=== PATIENT | male | born 1990 | race Caucasian/White ===

== ENCOUNTER 2016-09-30 16:19 | Emergency (ER) | payer OTHER ==
[~2016-09-30] VITALS: Ht 188 cm; Wt 107.5 kg
[2016-09-30 16:27] VITALS: TEMP 36.7; Ht 188 cm; Wt 107.5 kg
[2016-09-30 17:01] LABS: HEMATOCRIT 46.7 % (42-52); MEAN CELL VOLUME 90.5 fL (80-100); MEAN CORPUSCULAR HGB CONC 33.2 g/dl (32-36); MEAN PLATELET VOLUME 9.4 fL (7.4-10.4); PLATELET COUNT 231 K/uL (130-400); RED BLOOD COUNT 5.16 M/uL (4.7-6.1); WHITE BLOOD COUNT 9.19 K/uL (4.8-10.8)
[2016-09-30 17:20] LABS: BUN/CREATININE RATIO 13.9 (10-20); CALCIUM 9.1 mg/dl (8.5-10.1); CREATININE 0.94 mg/dl (0.60-1.40); POTASSIUM 4.1 mmol/L (3.5-5.1)
[2016-09-30 17:28] LABS: ACETAMINOPHEN < 2 ug/ml (10-30)
[2016-09-30 17:30] LABS: THYROID STIMULATING HORMONE 1.28 uIu/ml (0.300-4.500)
[2016-09-30] MEDS ORDERED: DIVA500T59 PO ×2 (17:42)
[2016-09-30] MEDS ORDERED: QUET1TAB90 PO (17:42)
[2016-09-30] MEDS ORDERED: FERR1TAB23 PO (17:42)
[2016-09-30 17:49] LABS: BENZODIAZEPINE, URINE NEG (NEG); COCAINE,URINE NEG (NEG); PHENCYCLIDINE, URINE NEG (NEG)
[2016-09-30] MEDS ORDERED: LORAZEPAM 1 MG TAB SL STA (19:20)
[2016-09-30] MEDS ORDERED: NICOTINE POLACRILEX 2 MG GUM MT STA (19:20)
--- NOTE | 2016-09-30 19:48 | EMERGENCY ROOM VISIT NOTE ---
History Report prepared by Ray: Candace Keith Under the Supervision of: Dr. Jose Antonio Wallis M.D. First contact with patient: 16:31 Chief Complaint: MENTAL HEALTH EVALUATION Stated Complaint: BLOOD WORK TO GET MENTAL HEALTH EVAL-REFERRED History of Present Illness The patient is a 26 year old male who presents to the Emergency Room for a mental health evaluation. The patient reports that he did not feel safe with himself because he has been thinking about hurting himself. The patient reports that he has tried to kill himself in the past and that he was hearing voices and was having flashbacks and hallucinations. He states that he has been diagnosed with bipolar disorder and schizophrenia and that he takes medications for this. He reports that he is also anemic. Right now he states that he feels pain rated at a 1/10. The patient also reports that he feels depressed because he found out that he went to high school with a kid who was hazed. He also states that he has been smoking cigarettes for 15 years since the age of 11. The patient states that he has been accepted to [facility] and came here for medical clearance. He is not homicidal. He states that he has no plan to kill himself and currently does not feel suicidal. Source of History: patient Onset: chronic Position: other (global) Symptom Intensity: moderate Quality: other (depression) Timing: constant Note: additional symptoms: suicidal thoughts Review of Systems See HPI for pertinent positives & negatives. A total of 10 systems reviewed and were otherwise negative. Past Medical & Surgical Medical Problems: (1) Asthma (2) Diabetes (3) Emphysema lung (4) Heart disease (5) Hypertension (6) Skin problem Family History Diabetes mellitus Heart disease Hypertension Kidney disease Lung disease Seizures Social History Smoking Status: Current Every Day Smoker Alcohol Use: none Current/Historical Medications Scheduled Divalproex Sodium (Depakote), 500 MG PO QAM Divalproex Sodium (Depakote), 750 MG PO HS Ferrous Sulfate (Iron), 1 TAB PO DAILY Quetiapine Fumarate (Seroquel), 600 MG PO HS Allergies Coded Allergies: Oxcarbazepine (Unverified Allergy, Severe, UNKNOWN, 09/30/16) Physical Exam Vital Signs Date Time Temp Pulse Resp B/P (MAP) Pulse Ox O2 Delivery O2 Flow Rate FiO2 09/30/16 18:09 102 20 145/92 98 Room Air 09/30/16 16:27 36.7 97 16 150/89 99 Room Air Physical Exam Constitutional: Vital signs reviewed. Eyes: Pupils are equal round reactive to light. Conjunctiva are noninjected. ENT: Pharynx is clear without erythema or exudate. Mucous membranes are moist. Neck supple without meningeal signs. Respiratory: Clear to auscultation bilaterally. Breath sounds are equal bilaterally. Cardiovascular: Regular rate and rhythm. No rubs or gallops. GI: Soft, nondistended and nontender. Bowel sounds are present. Musculoskeletal: No peripheral edema. No lower extremity tenderness. Integumentary: No cyanosis. Neurological: The patient is awake and alert. No focal deficits. Psychiatric: Guarded affect. Medical Decision & Procedures Laboratory Results 09/30/16 16:38 09/30/16 16:38 Test 09/30/16 16:38 09/30/16 17:00 Red Blood Count 5.16 M/uL (4.7-6.1) Mean Corpuscular Volume 90.5 fL (80-100) Mean Corpuscular Hemoglobin 30.0 pg (25-34) Mean Corpuscular Hemoglobin Concent 33.2 g/dl (32-36) RDW Standard Deviation 43.8 fL (36.4-46.3) RDW Coefficient of Variation 13.3 % (11.5-14.5) Mean Platelet Volume 9.4 fL (7.4-10.4) Anion Gap 8.0 mmol/L (3-11) Est Creatinine Clear Calc Drug Dose 158.3 ml/min Estimated GFR () 131.0 Estimated GFR (Non- 113.0 BUN/Creatinine Ratio 13.9 (10-20) Calcium Level 9.1 mg/dl (8.5-10.1) Total Bilirubin 0.3 mg/dl (0.2-1) Direct Bilirubin 0.1 mg/dl (0-0.2) Aspartate Amino Transf (AST/SGOT) 26 U/L (15-37) Alanine Aminotransferase (ALT/SGPT) 28 U/L (12-78) Alkaline Phosphatase 92 U/L (45-117) Total Protein 7.2 gm/dl (6.4-8.2) Albumin 3.7 gm/dl (3.4-5.0) Thyroid Stimulating Hormone (TSH) 1.280 uIu/ml (0.300-4.500) Salicylates Level 2.1 mg/dl (2.8-20) Acetaminophen Level < 2 ug/ml (10-30) Valproic Acid (Depakene) Level 89 mcg/ml (50-100) Ethyl Alcohol mg/dL < 3.0 mg/dl (0-3) Urine Opiates Screen NEG (NEG) Urine Methadone, Qualitative NEG (NEG) Urine Barbiturates NEG (NEG) Urine Phencyclidine (PCP) Level NEG (NEG) Ur Amphetamine/Methamphetamine NEG (NEG) MDMA (Ecstasy) Screen NEG (NEG) Urine Benzodiazepines Screen NEG (NEG) Urine Cocaine Metabolite NEG (NEG) Urine Marijuana (THC) POS (NEG) Laboratory results as reviewed by me. Medications Administered Medications (Trade) Dose Ordered Sig/Delphine Route Start Time Stop Time Status Last Admin Dose Admin Lorazepam (Ativan Tab) 1 mg NOW STAT SL 09/30/16 19:20 09/30/16 19:21 DC 09/30/16 19:28 1 MG Nicotine Polacrilex (Nicorette 2MG Gum) 1 piece NOW STAT MT 09/30/16 19:20 09/30/16 19:21 DC 09/30/16 19:27 1 PIECE ED Course 1644: The patient was evaluated in room A7. A complete history and physical exam was performed. 1740: The patient is medically cleared. I talked to the shelter case manager who said that the [facility] assessed him last night and they recommended outpatient care. 1920: The patient is anxious and requesting Nicotine gum and Ativan. Medical Decision This is a 26-year-old male who presents for mental health evaluation. I did perform a limited focused review of portions of the patient's old chart on the electronic medical record. The patient has had no recent pertinent visits to this hospital. Blood Pressure Screening: Patient was found to have an elevated blood pressure and was referred to their primary doctor for recheck and further treatment. Medication Reconciliation: I attest that I have personally reviewed the patient' s current medication list. I did evaluate the patient as noted above. I did order and review the patient' s blood work as noted in the electronic medical record. The patient is not anemic. His Depakote level is not elevated. I did medically clear the patient. The mental health shelter case manager evaluate the patient. She states that the [facility] evaluated patient yesterday and recommended outpatient treatment. The patient apparently misrepresented the fact that they had accepted him for admission. The patient does wish to be admitted for inpatient care. A referral was made to the [facility]. He was accepted by the [facility] and transferred securely. Impression Primary Impression: Depression Additional Impression: Suicidal ideation Scribe Attestation The scribe's documentation has been prepared under my direct and personally reviewed by me in its entirety. I confirm that the note above accurately reflects all work, treatment, procedures, and medical decision making performed by me. Departure Information Dispostion Mental Health Acute Care Referrals No Doctor, Assigned (PCP) Patient Instructions My [facility] Problem Qualifiers Primary Impression: Depression Depression Type: unspecified Qualified Codes: F32.9 - Major depressive disorder, single episode, unspecified
[2016-09-30 20:09] VITALS: BP 151/89; PULSE 81; O2SAT 100
== END 2016-09-30 20:39 ==
LOC: C.EDB 16:24 → C.EDA 20:39
DX: F32.9 Major depressive disorder, single episode, unspecified (principal); R45.851 Suicidal ideations; E11.9 Type 2 diabetes mellitus without complications; I10 Essential (primary) hypertension; I51.9 Heart disease, unspecified; J45.909 Unspecified asthma, uncomplicated; J43.9 Emphysema, unspecified; F17.200 Nicotine dependence, unspecified, uncomplicated; Z87.2 Personal history of diseases of the skin and subcutaneous tissue; Z88.8 Allergy status to other drugs, medicaments and biological substances; Z83.3 Family history of diabetes mellitus; Z82.49 Family history of ischemic heart disease and other diseases of the circulatory system; Z84.1 Family history of disorders of kidney and ureter; Z82.0 Family history of epilepsy and other diseases of the nervous system; Z79.899 Other long term (current) drug therapy

== ENCOUNTER 2016-10-15 00:18 | Emergency (ER) | payer OTHER ==
[~2016-10-15] VITALS: Ht 185.4 cm; Wt 91.9 kg
[~2016-10-15 00:18] MED LIST: DIVA500T59 PO; FERR1TAB23 PO; QUET1TAB90 PO
[2016-10-15] MEDS ORDERED: hydrOXYzine HCL 25 MG TAB PO STA (00:26)
[2016-10-15] MEDS ORDERED: LORAZEPAM 1 MG TAB PO STA (00:26)
[2016-10-15 00:28] VITALS: TEMP 36.7; Ht 185.4 cm; Wt 91.9 kg
[2016-10-15] MEDS ORDERED: RISP2TAB22 PO (01:12)
--- NOTE | 2016-10-15 01:13 | EMERGENCY ROOM VISIT NOTE ---
History Report prepared by Benedictiblelo: Brian Flynn Under the Supervision of: Dr. Carlos Pena D.O. First contact with patient: 00:24 Chief Complaint: ANXIETY Stated Complaint: ANXIETY, History of Present Illness The patient is a 26 year old male who presents to the Emergency Room with complaints of persistent anxiety beginning shortly prior to arrival. He has a history of anxiety, and took his prescribed medication about 8 hours ago. He states that he has not been able to sleep tonight. The patient denies any attempts at harming himself. He denies any suicidal or homicidal ideation. He denies taking increased dose of his medication or attempting to overdose. Source of History: patient Onset: Shortly prior to arrival Quality: other (anxiety) Timing: other (persistent) Review of Systems See HPI for pertinent positives and negatives. A total of ten systems were reviewed and were otherwise negative. Past Medical & Surgical Medical Problems: (1) Asthma (2) Diabetes (3) Emphysema lung (4) Heart disease (5) Hypertension (6) Skin problem Family History Diabetes mellitus Heart disease Hypertension Kidney disease Lung disease Seizures Social History Smoking Status: Current Every Day Smoker Alcohol Use: none Current/Historical Medications Scheduled Divalproex Sodium (Depakote), 500 MG PO QAM Divalproex Sodium (Depakote), 750 MG PO HS Ferrous Sulfate (Iron), 1 TAB PO DAILY Quetiapine Fumarate (Seroquel), 600 MG PO HS Risperidone (Risperdal), 2 MG PO HS Allergies Coded Allergies: Oxcarbazepine (Unverified Allergy, Severe, UNKNOWN, 09/30/16) Physical Exam Vital Signs Date Time Temp Pulse Resp B/P (MAP) Pulse Ox O2 Delivery O2 Flow Rate FiO2 10/15/16 00:28 36.7 114 20 145/110 96 Room Air Physical Exam PSYCH: Anxious. Denies suicidal or homicidal ideation. GENERAL: Awake, alert, well-appearing, in no distress HENT: Normocephalic, atraumatic. Oropharynx unremarkable. EYES: Normal conjunctiva. Sclera non-icteric. NECK: Supple. No nuchal rigidity. FROM. No JVD. RESPIRATORY: Clear to auscultation. CARDIAC: Tachycardic rate, normal rhythm. Extremities warm and well perfused. Pulses equal. ABDOMEN: Soft, non-distended. No tenderness to palpation. No rebound or guarding. No masses. RECTAL: Deferred. MUSCULOSKELETAL: Chest examination reveals no tenderness. The back is symmetrical on inspection without obvious abnormality. There is no CVA tenderness to palpation. No joint edema. LOWER EXTREMITIES: Calves are equal size bilaterally and non-tender. No edema. No discoloration. NEURO: Normal sensorium. No sensory or motor deficits noted. SKIN: No rash or jaundice noted. Medical Decision & Procedures Medications Administered Medications (Trade) Dose Ordered Sig/Delphine Route Start Time Stop Time Status Last Admin Dose Admin Hydroxyzine HCl (Vistaril Tab) 25 mg NOW STAT PO 10/15/16 00:26 10/15/16 00:28 DC 10/15/16 00:36 25 MG Lorazepam (Ativan Tab) 1 mg NOW STAT PO 10/15/16 00:26 10/15/16 00:28 DC 10/15/16 00:36 1 MG ED Course 0025: The patient was evaluated in room A6. A complete history and physical exam was performed. 0026: Ordered Ativan tab 1 mg PO, Vistaril Tab 25 mg PO. 0105: I reevaluated the patient. Discussed results and discharge instructions: he verbalized understanding and agreement. The patient is ready for discharge. Medical Decision Differential diagnoses include but are not limited to; anxiety, depression, and panic attack. Much improved on repeat examination at 1:10 AM, not suicidal and not homicidal states anxiety has decreased Impression Primary Impression: Acute anxiety Scribe Attestation The scribe's documentation has been prepared under my direction and personally reviewed by me in its entirety. I confirm that the note above accurately reflects all work, treatment, procedures, and medical decision making performed by me. Departure Information Dispostion Home / Self-Care Referrals No Doctor, Assigned (PCP) Patient Instructions Anxiety Disorder, My [facility]
[2016-10-15 01:30] VITALS: BP 127/69; PULSE 97; O2SAT 96
== END 2016-10-15 01:56 | disposition home or self-care (01) ==
LOC: EDBD 00:18 → C.EDA 00:19
DX: F41.9 Anxiety disorder, unspecified (principal); J45.909 Unspecified asthma, uncomplicated; E11.9 Type 2 diabetes mellitus without complications; I10 Essential (primary) hypertension; J43.9 Emphysema, unspecified; F17.200 Nicotine dependence, unspecified, uncomplicated; Z83.3 Family history of diabetes mellitus; Z82.49 Family history of ischemic heart disease and other diseases of the circulatory system; Z82.0 Family history of epilepsy and other diseases of the nervous system

== ENCOUNTER 2024-07-04 15:41 | Inpatient (IN) ==
--- NOTE | 2024-07-04 16:01 | Emergency Department Note ---
Impression & Plan STEMI (ST elevation myocardial infarction) Admission ED Provider Note HPI: History obtained from patient. The patient is a 33-year-old gentleman who was brought back to room A1 over concern for chest pain with an EKG that was suggestive of ST elevation myocardial infarction. 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 Patient denies any past medical history however upon chart review hypertension, diabetes, heart disease, and asthma are listed. On arrival here to the ED the patient is hypertensive at 174/116, he is otherwise hemodynamically stable and saturating well on room air. Heart alert was activated from the ED after EKG review by myself. ROS: - Per HPI Differential Diagnosis: ST elevation myocardial infarction, esophagitis, acid reflux, PE, aortic dissection, pericarditis, myocarditis, pleuritis, costochondritis, amongst other potential pathologies. *Outpatient medications and allergy history reviewed. 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: (As interpreted by myself): - An order was placed for continuous cardiac monitoring - Patient was noted to be in sinus rhythm with a rate of 72 EKG: (As interpreted by myself): Rate: 57 Rhythm: Sinus bradycardia Intervals: Within normal limits ST changes: ST elevation in leads II, 3, aVF with reciprocal ST depressions in leads aVL, V1, and V2 consistent with ST elevation myocardial infarction Time: 1551 Chest x-ray: (As interpreted by myself): No acute disease Interventions provided in ED: - Aspirin Medical Decision Making: Shortly after review of the patient's EKG, heart alert was activated. Patient's EKG is consistent with what appears to be an inferior wall ST elevation myocardial infarction. Patient was evaluated at the bedside by interventional cardiology and taken to the cardiac catheterization lab for further management. Patient remained otherwise hemodynamically stable while here in the ED and was ordered aspirin. Chest x-ray did not show any evidence of acute disease. Patient was transferred to the cardiac catheterization lab in stable condition for further management and investigation. Consultants/Discussions held with other healthcare providers: - Interventional cardiology, Dr. Jeffries - Hospitalist, Dr. Eric Disposition discussion held by myself with: - Patient * CRITICAL CARE TIME: (33) minutes - Management of patient with ST elevation myocardial infarction requiring activation of heart alert and transferred to the cardiac catheterization lab emergently for definitive care, interpretation of diagnostic studies including EKG, discussion with other physicians/arrangement of admission. Diagnosis: 1. Inferior wall ST elevation myocardial infarction, acute 2. Chest pain, acute Disposition: Admission Elfego Malik DO Emergency Medicine Past Med/Surg History Problem List (Updated 07/04/24 @ 21:17 by Elfego Malik DO) Benign essential hypertension Hyperlipidemia Schizoaffective disorder, bipolar type STEMI (ST elevation myocardial infarction) (Acute) Family History Father Bipolar disorder Brother Bipolar disorder Grandfather (Maternal) Cerebral aneurysm Grandmother (Maternal) Diabetes Social History Smoking Status: Former smoker Tobacco Type: E-cigarettes / Vaping Cigarettes Per Day: vaping to stop smoking; Hx Alcohol Use: No Hx Substance Use: No Preferred Language: Indian Communication Ability: Effective Pathologist Required: No Beliefs That Will Affect Care: None Current Living Situation: Alone current occupational status: employed Feels Safe at Home: Yes Safety Concerns: Feels Safe At This Time Gender Identity: Male Assistive Devices: None Allergies Allergies Allergy/AdvReac Type Severity Reaction Status Date / Time oxcarbazepine Allergy Severe UNKNOWN Verified 07/04/24 15:58 Home Meds Home Medications Medication Instructions Recorded Confirmed divalproex 500 mg tablet,extended 500 mg PO HS 04/27/22 07/04/24 release 24 hr Results & Data (ED) Vital Signs Vital Signs - 24 hr 07/04/24 15:42 07/04/24 15:56 07/04/24 15:56 Temperature 36.1 C L Temperature Source Temporal Artery Scan Pulse Rate 64 Pulse Rate [Apical] Pulse Rate from SpO2 Sensor Pulse Rhythm [Apical] Pulse Strength [Apical] Respiratory Rate 19 Respiratory Effort / Characteristics Non-Labored Spontaneous Respiratory Depth Normal Respiratory Pattern Blood Pressure 177/107 H 174/116 H 174/116 H Blood Pressure [Right Arm] Blood Pressure Mean 130 126 126 Blood Pressure Mean [Right Arm] Blood Pressure Position [Right Arm] Pulse Oximetry 98 Oxygen Delivery Method Room Air Sepsis Recent Fever Within 48 Hours No Sepsis New/Unexplained Change in Mental Status N/A Sepsis Action Taken by Nursing No Action Required 07/04/24 15:58 07/04/24 16:00 07/04/24 16:00 Temperature Temperature Source Pulse Rate Pulse Rate [Apical] 60 Pulse Rate from SpO2 Sensor 66 Pulse Rhythm [Apical] Pulse Strength [Apical] Respiratory Rate 14 Respiratory Effort / Characteristics Respiratory Depth Respiratory Pattern Blood Pressure Blood Pressure [Right Arm] 174/116 H Blood Pressure Mean Blood Pressure Mean [Right Arm] 135 Blood Pressure Position [Right Arm] Pulse Oximetry 99 99 100 Oxygen Delivery Method Room Air Room Air Sepsis Recent Fever Within 48 Hours Sepsis New/Unexplained Change in Mental Status Sepsis Action Taken by Nursing 07/04/24 16:04 07/04/24 16:04 07/04/24 16:04 Temperature Temperature Source Pulse Rate Pulse Rate [Apical] Pulse Rate from SpO2 Sensor Pulse Rhythm [Apical] Pulse Strength [Apical] Respiratory Rate Respiratory Effort / Characteristics Respiratory Depth Respiratory Pattern Blood Pressure 163/105 H 163/105 H 163/105 H Blood Pressure [Right Arm] Blood Pressure Mean 134 134 134 Blood Pressure Mean [Right Arm] Blood Pressure Position [Right Arm] Pulse Oximetry Oxygen Delivery Method Sepsis Recent Fever Within 48 Hours Sepsis New/Unexplained Change in Mental Status Sepsis Action Taken by Nursing 07/04/24 16:04 07/04/24 16:07 07/04/24 16:17 Temperature Temperature Source Pulse Rate Pulse Rate [Apical] 94 H Pulse Rate from SpO2 Sensor Pulse Rhythm [Apical] Regular Pulse Strength [Apical] Normal Respiratory Rate 18 Respiratory Effort / Characteristics Non-Labored Respiratory Depth Normal Respiratory Pattern Regular Blood Pressure 163/105 H Blood Pressure [Right Arm] 107/60 Blood Pressure Mean 134 Blood Pressure Mean [Right Arm] 75 Blood Pressure Position [Right Arm] Sitting Pulse Oximetry 97 Oxygen Delivery Method Room Air Room Air Sepsis Recent Fever Within 48 Hours Sepsis New/Unexplained Change in Mental Status Sepsis Action Taken by Nursing Laboratory Data 07/04/24 15:58 07/04/24 15:58 Lab Results 07/04/24 07/04/24 07/04/24 Range/Units 15:58 16:33 16:47 WBC 13.61 H (4.8-10.8) K/ul RBC 5.69 (4.70-6.10) M/uL Hgb 16.7 (14.0-18.0) g/dl Hct 48.7 (42.0-52.0) % MCV 85.6 (80.0-100.0) fL MCH 29.3 (25.0-34.0) pg MCHC 34.3 (32.0-36.0) g/dL RDW Std Deviation 39.4 (36.4-46.3) fL RDW Coeff of Love 12.6 (11.5-14.5) % Plt Count 343 (130-400) K/uL MPV 9.2 L (9.4-12.4) fL Immature Gran % (Auto) 0.7 % Neut % (Auto) 70.6 % Lymph % (Auto) 21.3 % Stanton % (Auto) 6.0 % Eos % (Auto) 1.1 % Baso % (Auto) 0.3 % Neut # (Auto) 9.61 H (1.40-6.50) K/uL Lymph # (Auto) 2.90 (1.20-3.40) K/uL Stanton # (Auto) 0.82 H (0.11-0.59) K/uL Eos # (Auto) 0.15 (0.00-0.50) K/uL Baso # (Auto) 0.04 (0.00-0.20) K/uL Immature Gran # (Auto) 0.09 (0.01-0.20) K/uL PT 10.1 (9.0-12.0) Seconds INR 0.9 (0.9-1.1) APTT 25 (21-31) Seconds PTT Ratio 0.9 Activ Coag Time Kaolin 187 H 170 H (94-140) SECONDS Sodium 140 (136-145) mmol/L Potassium 4.1 (3.5-5.1) mmol/L Chloride 102 (98-107) mmol/L Carbon Dioxide 30 (21-32) mmol/L Anion Gap 8 (3-11) BUN 10 (6-23) mg/dl Creatinine 0.98 (0.6-1.4) mg/dl Est Cr Clr Drug Dosing 149.3 ml/min eGFR 105.73 BUN/Creatinine Ratio 10.2 (10-20) Glucose 105 H (70-99(Fasting)) mg/dl Estimat Average Glucose 111 mg/dl Hemoglobin A1c 5.5 (4.5-5.6) % Calcium 9.9 (8.6-10.3) mg/dl Total Bilirubin 0.6 (0.2-1.0) mg/dl AST 52 H (13-39) U/L ALT 72 H (7-52) U/L Alkaline Phosphatase 83 (34-104) U/L Troponin I High Sens 26.1 H (0-20) pg/ml Total Protein 7.9 (6.0-8.3) gm/dl Albumin 4.6 (3.4-5.0) gm/dl Globulin 3.3 (2.5-4.0) gm/dl Albumin/Globulin Ratio 1.4 (0.9-2) Administered Medications Divalproex Sodium (Divalproex Extended Release 500 Mg Tab) 500 mg PO HS KATERIN Stop: 08/03/24 20:59 Last Admin: 07/04/24 20:50 Dose: 500 mg Documented By: ESG Metoprolol Tartrate (Metoprolol Tartrate 25 Mg Tab) 25 mg PO BID KATERIN Stop: 08/03/24 20:59 Last Admin: 07/04/24 20:50 Dose: 25 mg Documented By: ESG Miscellaneous (Icu Protocol For Hyperglycemia) 1 each N/A ACHS KATERIN Stop: 07/06/24 20:59 Last Admin: 07/04/24 20:55 Dose: Not Given Documented By: ESG Discontinued Medications Amiodarone HCl (Amiodarone Hcl Inj 50 Mg/Ml 3 Ml Vial (Ethologist Use Only)) Confirm Administered Dose 150 mg IV .STK-MED ONE Stop: 07/04/24 16:28 Last Admin: 07/04/24 16:44 Dose: 150 mg Documented By: ALLEGRA Aspirin (Aspirin 81 Mg Chew) Confirm Administered Dose 81 mg .ROUTE .STK-MED ONE Stop: 07/04/24 16:03 Last Admin: 07/04/24 16:07 Dose: Not Given Documented By: AVM Aspirin (Aspirin Chew 324 Mg) 324 mg PO NOW STA Stop: 07/04/24 16:06 Last Admin: 07/04/24 16:07 Dose: 324 mg Documented By: OSIRIS Atropine Sulfate (Atropine Sulfate 0.1 Mg/Ml 10ml Syr) Confirm Administered Dose 1 mg IV .STK-MED ONE Stop: 07/04/24 16:23 Last Admin: 07/04/24 16:43 Dose: Not Given Documented By: BPY Epinephrine HCl (Epinephrine 1.5" Ndl 0.1 Mg/Ml Syr) Confirm Administered Dose 1 mg IV .STK-MED ONE Stop: 07/04/24 16:23 Last Admin: 07/04/24 16:44 Dose: Not Given Documented By: BPY Fentanyl Citrate (Fentanyl Citrate Pf 100 Mcg/2 Ml Vial) Confirm Administered Dose 100 mcg .ROUTE .STK-MED ONE Stop: 07/04/24 16:12 Last Increment: 07/04/24 16:45 Dose: 25 mcg Documented By: BPGina Heparin Sodium (Porcine) (Heparin (Porcine) 1000 Unit/Ml 10 Ml (Ethologist Use Only)) Confirm Administered Dose 10,000 units .ROUTE .STK-MED ONE Stop: 07/04/24 16:12 Last Admin: 07/04/24 16:47 Dose: 9,500 units Documented By: BPY Heparin Sodium (Porcine) (Heparin (Porcine) 1000 Unit/Ml 10 Ml (Ethologist Use Only)) Confirm Administered Dose 10,000 units .ROUTE .STK-MED ONE Stop: 07/04/24 16:51 Last Admin: 07/04/24 17:28 Dose: Not Given Documented By: ESG(2) Heparin Sodium/Sodium Chloride (Heparin In Nss Infusion 1000 Unit/500 Ml (2 U/Ml) Bag) Confirm Administered Dose 3,000 units IV .STK-MED ONE Stop: 07/04/24 16:12 Last Admin: 07/04/24 16:42 Dose: 3,000 units Documented By: BPY Ioversol (Optiray 350) Confirm Administered Dose 1 ml .ROUTE .STK-MED ONE Stop: 07/04/24 16:13 Last Admin: 07/04/24 17:28 Dose: Not Given Documented By: ESG(2) Midazolam HCl (Midazolam Hcl 1 Mg/Ml 2ml Vial) Confirm Administered Dose 2 mg .ROUTE .STK-MED ONE Stop: 07/04/24 16:12 Last Increment: 07/04/24 16:47 Dose: 1 mg Documented By: ALLEGRA Nicardipine HCl (Nicardipine 2,000 Mcg/20 Ml Syr) Confirm Administered Dose 2,000 mcg .ROUTE .STK-MED ONE Stop: 07/04/24 16:13 Last Admin: 07/04/24 16:42 Dose: 2,000 mcg Documented By: JEMIMA Nitroglycerin/Dextrose (Nitroglycerin/D5w 100mcg/Ml 20ml Syr) Confirm Administered Dose 2,000 mcg .ROUTE .STK-MED ONE Stop: 07/04/24 16:13 Last Admin: 07/04/24 16:43 Dose: 2,000 mcg Documented By: JEMIMA Ondansetron HCl (Ondansetron Inj 2 Mg/Ml 2 Ml Vial) Confirm Administered Dose 4 mg .ROUTE .STK-MED ONE Stop: 07/04/24 16:23 Last Admin: 07/04/24 16:44 Dose: Not Given Documented By: ALLEGRA Ticagrelor (Ticagrelor 90 Mg Tab) Confirm Administered Dose 180 mg .ROUTE .STK- MED ONE Stop: 07/04/24 16:05 Last Admin: 07/04/24 16:07 Dose: 180 mg Documented By: OSIRIS Imaging Data Radiologist's Impression: Chest X-Ray 07/04/24 15:46 Chest radiograph, one view History: Chest pain Comparison: 2022 Findings: Single AP view of the chest performed. No focal consolidation or pleural effusion. No pneumothorax. The cardiomediastinal silhouette is within normal limits. Normal pulmonary vascularity. No evidence for lymphadenopathy. No visualized bony or soft tissue abnormality. Impression: Normal chest radiograph Electronically signed by Bridger Juárez 07-04-2024 4:20 PM Discharge Plan Visit Data Chief Complaint: Chest Pain Stated Complaint: CHEST PAINS ED Provider: Elfego Malik Discharge Problem: STEMI (ST elevation myocardial infarction) Discharge Instructions Interventions: ED Discharge Assessment Last Done: 07/04/24 16:07
[2024-07-04] MEDS: ASPIRIN CHEW 324 MG PO STA (16:07)
[2024-07-04] MEDS: ASPIRIN 81 MG CHEW ONE (16:07)
[2024-07-04] MEDS: TICAGRELOR 90 MG TAB ONE (16:07)
--- NOTE | 2024-07-04 16:12 | Pre Anesthesia Assessment ---
Date of Service July 04, 2024 Pre Sedation Assessment Vital Signs Temp Pulse Pulse Resp BP BP Pulse Ox 07/04/24 16:00 99 07/04/24 15:58 60 14 174/116 H 99 07/04/24 15:42 36.1 C L 64 19 177/107 H 98 O2 Del Method 07/04/24 16:00 Room Air 07/04/24 15:58 Room Air 07/04/24 15:42 Room Air Cardiovascular RRR, no murmur, no edema Respiratory normal respiratory effort, lungs clear to auscultation Pre-Sedation Airway Assessment Smoking Status: Current every day smoker Mallampati 3 ASA 4 Notes The planned sedation has been discussed with the patient. Informed Consent was obtained. I have identified the patient, determined the appropriateness of sedation and have assessed the patient immediately prior to the procedure. All medicine(s) and interventions are by my order. [facility] [place] Procedure Codes (Charges) Indication for Procedure Indication for procedure: STEMI
--- NOTE | 2024-07-04 16:20 | XRay Report ---
Chest radiograph, one view History: Chest pain Comparison: 2022 Findings: Single AP view of the chest performed. No focal consolidation or pleural effusion. No pneumothorax. The cardiomediastinal silhouette is within normal limits. Normal pulmonary vascularity. No evidence for lymphadenopathy. No visualized bony or soft tissue abnormality. Impression: Normal chest radiograph Electronically signed by Bridger Juárez 07-04-2024 4:20 PM
--- NOTE | 2024-07-04 16:24 | History & Physical Report ---
Date of Service July 04, 2024 Assessment & Plan (1) STEMI (ST elevation myocardial infarction): (2) Hyperlipidemia: (3) Schizoaffective disorder, bipolar type: Plan 33 year old male with PMH of hyperlipidemia and bipolar disorder who presented to the ED today with chest pain and was found to have a STEMI. STEMI s/p stent x2 in RCA Consult Heel Scourer and Cardiology: appreciate recs Post cardiac cath care per Interventional Cardiology Echo pending Started on aspirin and Brilinta, metoprolol, and atorvastatin HLD Per record review: Chol 237, LDL 150, HDL 39, Tri 292 Statin as above Schizoaffective disorder, bipolar type Continue depakote per home dosing DVT Prophylaxis: SCDs Code Status: FULL CODE - As per discussion at bedside with the patient. PCP: Dr Demetrius Hobbs Disposition: admit to ICU Patient seen in collaboration with Dr Eric. Please see addendum. I spent a total of 75 minutes coordinating, documenting and providing care for this patient excluding time spent in the performance of separately billed services or time spent by another provider/QHP. Admission and Anticipated Discharge Date Admission Date: 07/04/2024 History of Present Illness Chief Complaint: chest pain Primary Care Provider: Demetrius Hobbs MD 33 year old male with PMH of hyperlipidemia and bipolar disorder who presented to the ED today with chest pain. He reports that he was taking out the trash at work when he developed severe left sided chest pain with associated anxiety and diaphoresis. He came to the ED two hours later where his EKG revealed STEMI in the inferior leads. A heart alert was activated in the ED. Patient seen in the ICU after cardiac cath. He reports his chest pain is much improved. Denies fevers, chills, chest pain, SOB, abdominal pain, N/V, numbness/tingling. Allergies Allergy/AdvReac Type Severity Reaction Status Date / Time oxcarbazepine Allergy Severe UNKNOWN Verified 07/04/24 15:58 Home Medications Medication Instructions Recorded Confirmed Type divalproex 500 mg tablet,extended 500 mg PO HS 04/27/22 07/04/24 History release 24 hr Past Med/Surg History Problem List (Updated 07/04/24 @ 17:50 by Carlos Jeffries MD, PhD) Benign essential hypertension Hyperlipidemia Schizoaffective disorder, bipolar type STEMI (ST elevation myocardial infarction) Family History Father Bipolar disorder Brother Bipolar disorder Grandfather (Maternal) Cerebral aneurysm Grandmother (Maternal) Diabetes Social History Smoking Status: Former smoker Tobacco Type: E-cigarettes / Vaping Cigarettes Per Day: vaping to stop smoking; Hx Alcohol Use: No Hx Substance Use: No Preferred Language: Chilean Communication Ability: Effective Leather Goods Maker Required: No Beliefs That Will Affect Care: None Current Living Situation: Alone current occupational status: employed Feels Safe at Home: Yes Safety Concerns: Feels Safe At This Time Gender Identity: Male Assistive Devices: None Review of Systems Review of Systems: All systems reviewed & are unremarkable except as noted in HPI & below Physical Exam Physical Exam: General/Psych: WD/WN, sitting up in bed, NAD, conversing easily, euthymic affect Head: normocephalic, atraumatic Eyes: normal inspection, PERRL, conjunctivae pink, anicteric sclerae ENT: external ear and nose normal, oropharynx normal Neck: normal visual inspection, trachea midline, no thyromegaly Respiratory: normal respiratory effort, lungs clear to auscultation, no wheeze/rales/rhonchi, no accessory muscle use Cardiovascular: regular rate and rhythm, no murmur/rub/gallop, no JVD Extremities: no cyanosis or clubbing, normal peripheral pulses, no BLE edema, radial band in place on right wrist Abdomen/GI: normal bowel sounds, soft, nontender, no hepatosplenomegaly Neurologic/MSK: A+Ox3, motor strength 5/5, moves all extremities Skin: no rashes, normal color, warm and dry Results & Data Results & Data Vital Signs (Past 12 Hours) Vital Signs Temp Pulse Pulse Resp BP BP Pulse Ox 07/04/24 16:04 163/105 H 07/04/24 16:04 163/105 H 07/04/24 16:04 163/105 H 07/04/24 16:04 163/105 H 07/04/24 16:00 100 07/04/24 16:00 99 07/04/24 15:58 60 14 174/116 H 99 07/04/24 15:56 174/116 H 07/04/24 15:56 174/116 H 07/04/24 15:42 36.1 C L 64 19 177/107 H 98 O2 Del Method 07/04/24 16:04 07/04/24 16:04 07/04/24 16:04 07/04/24 16:04 07/04/24 16:00 07/04/24 16:00 Room Air 07/04/24 15:58 Room Air 07/04/24 15:56 07/04/24 15:56 07/04/24 15:42 Room Air Laboratory Results Short CBC 07/04/24 Range/Units 15:58 WBC 13.61 H (4.8-10.8) K/ul Hgb 16.7 (14.0-18.0) g/dl Hct 48.7 (42.0-52.0) % Plt Count 343 (130-400) K/uL BMP 07/04/24 15:58 Sodium 140 Potassium 4.1 Chloride 102 Carbon Dioxide 30 BUN 10 Creatinine 0.98 Glucose 105 H Calcium 9.9 Liver Function 07/04/24 Range/Units 15:58 Total Bilirubin 0.6 (0.2-1.0) mg/dl AST 52 H (13-39) U/L ALT 72 H (7-52) U/L Alkaline Phosphatase 83 (34-104) U/L Albumin 4.6 (3.4-5.0) gm/dl I have independently reviewed and interpreted patient's admitting labs including CBC, CMP, PTT, PT/INR, and troponin. Diagnostic Findings Chest X-Ray 07/04/24 15:46 Chest radiograph, one view History: Chest pain Comparison: 2022 Findings: Single AP view of the chest performed. No focal consolidation or pleural effusion. No pneumothorax. The cardiomediastinal silhouette is within normal limits. Normal pulmonary vascularity. No evidence for lymphadenopathy. No visualized bony or soft tissue abnormality. Impression: Normal chest radiograph Electronically signed by Bridger Juárez 07-04-2024 4:20 PM Medications Administered Current Inpatient Medications Aspirin (Aspirin 81 Mg Ectab) 81 mg PO QAM KATERIN Stop: 08/04/24 08:59 Atorvastatin Calcium (Atorvastatin 40 Mg Tab) 40 mg PO QAM KATERIN Stop: 08/04/24 08:59 Atropine Sulfate (Atropine Sulfate 0.1 Mg/Ml 10ml Syr) 0.5 mg IV ONCE PRN PRN Reason: bradycardia/hypotension Stop: 08/03/24 16:46 Metoprolol Tartrate (Metoprolol Tartrate 25 Mg Tab) 25 mg PO BID [facility] Stop: 08/03/24 20:59 Ondansetron HCl (Ondansetron Inj 2 Mg/Ml 2 Ml Vial) 4 mg IV Q6H PRN PRN Reason: Nausea And Vomiting Stop: 08/03/24 16:46 Ticagrelor (Ticagrelor 90 Mg Tab) 90 mg PO BID [facility] Stop: 08/04/24 08:59 ECG Additional Comments: I have independently reviewed and interpreted patient's admitting EKG which revealed: 57bpm with ST elevations in II, III, avF and ST depressions in V1 and V2 Code Status & VTE Plan Code Status Full Code Supervising Physician Co-Signing Physician Notes Patient seen and examined independently. Discussed with above provider. Patient presented to the hospital with a STEMI; underwent PCI of RCA. He reports that the pain has resolved after cardiac cath. Plan to obtain echocardiogram, observe overnight in the ICU. Continue on DAPT, losartan and metoprolol. Discussed lifestyle measures. I have reviewed the advanced practitioner's documentation, and I agree with, and take responsibility for the plan of care I spent a total of 30 minutes coordinating, documenting, and providing care for this patient excluding time spent in the performance of separately billed services. All of the aforementioned completed while collaborating with the assigned advanced practitioner for a full treatment plan
[2024-07-04 16:33] LABS: Basophils # (auto) 0.04 K/uL (0.00-0.20); Basophils % (auto) 0.3 %; Eosinophils # (auto) 0.15 K/uL (0.00-0.50); Eosinophils % (auto) 1.1 %; Hematocrit (blood only) 48.7 % (42.0-52.0); Hemoglobin 16.7 g/dl (14.0-18.0); Immature Granulocytes # (auto) 0.09 K/uL (0.01-0.20); Immature Granulocytes % (auto) 0.7 %; Lymphocytes % (auto) 21.3 %; Mean Corpuscular Hemoglobin 29.3 pg (25.0-34.0); Mean Corpuscular Hgb Conc 34.3 g/dL (32.0-36.0); Mean Corpuscular Volume 85.6 fL (80.0-100.0); Mean Platelet Volume 9.2 fL (9.4-12.4); Monocytes # (auto) 0.82 K/uL (0.11-0.59); Neutrophils # (auto) 9.61 K/uL (1.40-6.50); Neutrophils % (auto) 70.6 %; Platelet Count 343 K/uL (130-400); RDW Coefficient of Variation 12.6 % (11.5-14.5); RDW Standard Deviation 39.4 fL (36.4-46.3); Red Blood Count 5.69 M/uL (4.70-6.10); White Blood Count 13.61 K/ul (4.8-10.8)
[2024-07-04 16:40] LABS: INR 0.9 (0.9-1.1); Partial Thromboplastin Ratio 0.9; Partial Thromboplastin Time 25 Seconds (21-31); Prothrombin Time 10.1 Seconds (9.0-12.0)
[2024-07-04] MEDS: niCARdipine 2,000 MCG/20 ML SYR ONE (16:42)
[2024-07-04] MEDS: NITROGLYCERIN/D5W 100MCG/ML 20ML SYR ONE (16:43)
[2024-07-04] MEDS: ATROPINE SULFATE 0.1 MG/ML 10ML SYR IV ONE (16:43)
[2024-07-04] MEDS: AMIODARONE HCL INJ 50 MG/ML 3 ML VIAL (CATH LAB USE ONLY) IV ONE (16:44)
[2024-07-04] MEDS: ONDANSETRON INJ 2 MG/ML 2 ML VIAL ONE (16:44)
[2024-07-04] MEDS: fentaNYL citrate PF 100 MCG/2 ML VIAL ONE (16:45)
--- NOTE | 2024-07-04 16:46 | Post Anesthesia Assessment ---
Date of Service July 04, 2024 Post Sedation Assessment Vital Signs Temp Pulse Pulse Resp BP BP Pulse Ox 07/04/24 16:17 94 H 18 107/60 97 07/04/24 16:07 07/04/24 16:04 163/105 H 07/04/24 16:04 163/105 H 07/04/24 16:04 163/105 H 07/04/24 16:04 163/105 H 07/04/24 16:00 100 07/04/24 16:00 99 07/04/24 15:58 60 14 174/116 H 99 07/04/24 15:56 174/116 H 07/04/24 15:56 174/116 H 07/04/24 15:42 36.1 C L 64 19 177/107 H 98 O2 Del Method 07/04/24 16:17 Room Air 07/04/24 16:07 Room Air 07/04/24 16:04 07/04/24 16:04 07/04/24 16:04 07/04/24 16:04 07/04/24 16:00 07/04/24 16:00 Room Air 07/04/24 15:58 Room Air 07/04/24 15:56 07/04/24 15:56 07/04/24 15:42 Room Air Recovery Score Activity: Moves 4 extremities Respiration: Deep Breath/Cough Circulation: +/-20% PreAnes Value Consciousness: Fully Awake Oxygen Saturation: > 92% On Room Air Discharge Sedation Level of Care: Fast Track Phase II Post Sedation Plan On clinical assessment, the patient appears to have tolerated the sedation without complications. Patient is recovering as anticipated. Patient will continue to be monitored by nursing and may be discharged when sedation discharge criteria are met per below protocol. Upon Completions of procedure up to 15 minutes continue every 5 minute vital signs and the P.A.R. score; then discharge to a Phase I or Fast Track to Phase II per the following guidelines: * Discharge Patient to appropriate Phase II area if PAR is 8 or greater or re turn to pre- procedure baseline. The post - procedure orders will be as directed. * If PAR score is less than 8 or not return to pre-procedure baseline then patient will follow Phase I monitoring till PAR is reached for Phase II. The Phase I may be done in procedure room or may call to secure a Phase I area. * If naloxone or flumazenil are used for reversal, hold in Phase I for continued monitoring from when last reversal dose was given for a minimum of 60 minutes or longer pending the nurse and/or physician discretion of patient condition before discharge to Phase II. Please call the Sedation Physician to re-evaluate and complete post-note for discharge to Phase II area. Do NOT discharge from procedure sedation or Phase 1 until post- sedation evaluation note is complete by procedure /sedation MD Sedation Discharge Instructions to be given to the patient at discharge to home. [facility] [place] Codes (Charges) Indication for Procedure Indication for procedure: STEMI
[2024-07-04] MEDS: MIDAZOLAM HCL 1 MG/ML 2ML VIAL ONE (16:47)
[2024-07-04] MEDS ORDERED: ATROPINE SULFATE 0.1 MG/ML 10ML SYR IV PRN (16:47)
[2024-07-04] MEDS: HEPARIN (PORCINE) 1000 UNIT/ML 10 ML (CATH LAB USE ONLY) ONE ×2 (16:47→17:28)
[2024-07-04] MEDS ORDERED: ONDANSETRON INJ 2 MG/ML 2 ML VIAL IV PRN (16:47)
[2024-07-04 17:05] LABS: Troponin I High Sensitivity 26.1 pg/ml (0-20)
[2024-07-04 17:18] LABS: Albumin Level 4.6 gm/dl (3.4-5.0); Bilirubin,Total 0.6 mg/dl (0.2-1.0); Calcium 9.9 mg/dl (8.6-10.3); Potassium 4.1 mmol/L (3.5-5.1)
[2024-07-04 17:24] LABS: Albumin Globulin Ratio 1.4 (0.9-2); BUN Creatinine Ratio 10.2 (10-20); Creatinine Clr Calc Pharmacy 149.3 ml/min; Globulin 3.3 gm/dl (2.5-4.0); Total Protein 7.9 gm/dl (6.0-8.3)
[2024-07-04] MEDS: OPTIRAY 350 ONE (17:28)
--- NOTE | 2024-07-04 17:39 | Cardiac Catheterization ---
ACC Data: External Grinder Tool Cardiac Status Clinical evaluation leading to the procedure CAD Presenation: STEMI Anginal Classification: CCS IV Heart Failure: No Cardiogenic Shock within 24 Hours: No Cardiac Arrest within 24 Hours: No Imaging Studies Past 6 Months: No Stress Studies Past 6 Months: No STEMI OR Non-STEMI Symptom Onset Date: 07/04/24 Symptom Onset Time: 12:00 Thrombolytics: No Coronary Anatomy Dominant: Right Left Main (% Stenosis): Normal LAD (% Stenosis): Mid (40%) D1 (% Stenosis): Ostial (50 to 70%) D2 (% Stenosis): Normal (99% in first major branch) D3 (% Stenosis): Normal Circumflex (% Stenosis): Normal OM1 (% Stenosis): Normal L PL1 (% Stenosis): Normal RCA (% Stenosis): Proximal (100%) R PDA (% Stenosis): Normal R PL1 (% Stenosis): Normal Diagnostic Physicians Name: Carlos Jeffries MD, PhD Closure Device Percutaneous Entry Location: Radial Closure Device: Radial Band Recommendations: Medical Therapy and/or Counseling and PCI without planned CABG PCI Indication: PCI for STEMI - Stable First Noted: First EKG Lesion Segment Name: Proximal RCA Culprit Artery: Yes Stenosis Prior to Rx (%): 100% Chronic Total Occlusion: No Pre-Procedure PARUL Flow: 0 Previously Treated Lesion: No Lesion Complexity: Non-High/Non-C Lesion Length (mm): 12 Thrombus Present: Yes Bifurcation Lesion: No Guidewire Across Lesion: Yes Intraprocedure Events Significant Disection: No Perforation: No Cardiac Cath Procedure Full Procedure Date July 04, 2024 Pre-Procedure Diagnosis Pre-Procedure Diagnosis: STEMI AUC Score AUC Score: 09 Post-Procedure Diagnosis Post-Procedure Diagnosis: Severe CAD and Successful PCI Procedure(s) Performed Procedure(s) Performed: Coronary Angiography and Drug Eluting Stent Dry Sand Molder Carlos Jeffries MD, PhD Estimated Blood Loss Estimated Blood Loss: 5 cc Medication(s) Medication(s): Fentanyl, Heparin, Lidocaine 1%, Nicardipine, Nitroglycerin and Versed Medication(s): Amiodarone Summary of Findings Brief description: Patient was brought emergently to the cardiac catheterization suite where he was shaved and prepped in a sterile fashion. Sedated using IV Versed and fentanyl. Soft tissues of the right wrist were anesthetized using 2 mL of 1% Xylocaine. The right radial artery was accessed using a modified Seldinger technique and a 6 Micronesian radial artery glide sheath was placed. Patient was provided anticoagulation with IV heparin (total 11,500) and antispasmodics including nicardipine and nitroglycerin. All catheters were advanced and exchanged over a 0.035 J-tip wire. Patient had received aspirin 324 mg and Brilinta 180 mg p.o. in the emergency department. Right coronary angiography was performed in orthogonal views using a 6 Micronesian JR4 guide catheter. We proceeded immediately to PCI as below. Left coronary angiography was completed after the PCI using a 5 Micronesian JL 3.5 diagnostic catheter. Patient was provided anticoagulation with IV heparin and the ACT was checked intermittently and additional heparin provided to assure therapeutic anticoagulation. A BMW reversal guidewire was passed through the guide catheter and positioned distally in the RCA. Lesion was predilated with a 2.5 x 12 mm trek balloon at 14 cornelius. Balloon was then removed. A 3.0 x 15 mm guillermo point drug-eluting stent was advanced and positioned across the lesion where it was deployed at 12 cornelius. Second inflation was performed to 12 cornelius. Balloon was removed. Repair Welder angiography was performed. A 3.0 x 8 mm Kenyon drug-eluting stent was then advanced and positioned in an overlap fashion with the proximal edge of the first stent where it was deployed at 17 cornelius. The initial stent was then postdilated with this balloon to 17 cornelius in its proximal and midportion. Balloon was then removed. A 3.25 NC Ludin balloon was positioned in the stent and postdilated distally to 16 cornelius, mid segment 18 cornelius, and proximal segment to the proximal edge at 18 cornelius. Balloon was then removed and director of instructional technology angiography performed. Guidewire was removed and final angiographic evaluation was performed. The guide liner was then removed. Left coronary angiography was completed as above. Diagnostic catheter was removed. Radial artery sheath was removed. Hemostasis was obtained using a TR band. Patient was hemodynamically stable and asymptomatic. He was therefore transported to the ICU for further workup and management. This ended the case. Coronary angiography findings: [id number] vessel bifurcating into LAD and circumflex. Mild luminal irregularities. [id number] and transapical. Gives a large septal branch and then a large first diagonal followed by a large branching second diagonal and then a medium caliber third diagonal. The mid segment of the LAD has up to 40% focal stenosis, the remainder of the LAD has mild scattered plaques. D1 has ostial 50 to 70% stenosis. D2 has ostial 99% stenosis at one of the branches (too small for PCI). Third diagonal has no disease. LCx-this is large caliber and nondominant. Travels in the AV groove providing a large OM1 followed by an atrial branch and then terminates as a medium caliber posterolateral. There is no more than mild luminal irregularities in the circumflex and its branches. [id number]. Proximal 100% stenosis with PARUL 0 flow and staining consistent with acute thrombotic stenosis. PCI of RCA-there is 0% residual stenosis post PCI. Post PCI the mid and distal RCA are visualized. They have mild luminal irregularities. Vessel then bifurcates into a large PDA and a large multi branching posterolateral which have no significant disease. PARUL-3 flow post PCI No evidence of dissection or perforation post PCI Summary: 1. Acute inferior ST elevation [place] secondary to acute thrombosis of the proximal RCA. 2. Successful PCI with implantation of 2 overlapped drug-eluting stents to the proximal RCA. 3. Patient will be on dual antiplatelet therapy with aspirin 81 mg daily and Brilinta 90 mg p.o. twice daily. 4. Guideline directed medical therapy for secondary prevention of coronary disease. We will begin with the aspirin, high intensity statin therapy, beta- seamus, and if his blood pressure will allow we will add DAIN inhibitor or angiotensin receptor seamus prior to discharge. Hemodynamics Rest Ao:: 152/102 mmHg Final Ao: 112/80 mmHg LV: Not performed Recommendations Recommendations: Medical Therapy and/or Counseling and PCI without planned CABG Radiation Exposure (mGy) 2350 mGy, fluoroscopy time 9.8 minutes Contrast (mls) 140 cc Anesthesia 1 mg Versed, 25 mcg fentanyl IV. Start time 1616, end time 1643 Procedural Complication(s) None Disposition ICU I attest to the content of the Intraoperative Record and any orders documented therein. Any exceptions are noted below. [employer]G Card Cath Procedure Codes Cardiac Catheterization Procedure 1: Cardiovascular Cath Procedures: 14682 Coronaries Moderate Sedation Procedure 1: Sedation/Anesthesia: 22763 Mod Sedation by the same physician;Init15 Min Child Age 5 & Up (Initial 15 minutes, start time 1616) Procedure 2: Sedation/Anesthesia: 98425 Mod Sedation by the same physician; Ea [id number] Minutes (Additional 12 minutes, end time 1643) Stenting Procedure 1: Cardiovascular Stent Procedures: 02503 Perc transluminal revascularization of acute sub/total occl, aMI (RCA) PG Care Time/CCT Total # of Minutes Spent Total Time Spent with Patient: Total time spent is greater than 50% in coordination of care (as documented) at patient's floor/unit and/or counseling patient:
--- NOTE | 2024-07-04 17:50 | Cardiology Consultation ---
Date of Consultation July 04, 2024 Assessment & Plan (1) STEMI (ST elevation myocardial infarction): Status post PCI with 2 overlapped drug-eluting stents. Remain on aspirin 81 mg daily and Brilinta 90 mg p.o. twice daily for 1 to 2 years. We will obtain an echocardiogram. He will remain in the ICU for 24 hours as per standard of care. He remains at risk for post RI arrhythmia. We will initiate guideline directed medical therapy for secondary prevention of coronary disease including low-dose aspirin, high intensity statin therapy, beta-seamus, and if his blood pressure will allow we will start him on angiotensin receptor seamus later during admission as indicated for his diabetes. Further recommendations pending results of his echo. I am also checking hemoglobin A1c and consulting press maintainer to help with his diet. We strongly encouraged him to stop smoking and participate in cardiac rehab. (2) Hyperlipidemia: Patient is high risk (diabetes and CAD). High intensity statin therapy is recommended. We are obtaining a fasting lipid panel. Target LDL reduction will be 50% of his untreated baseline LDL. (3) Benign essential hypertension: Blood pressure was very elevated when he presented. Not sure that he has el evated blood pressure when he is not having pain. Therefore, were using cautious addition of cardiac indicated medications beginning with beta-seamus. If his primary care provider notes can be obtained we will have a better idea about his usual blood pressures and other comorbid disease. History of Present Illness Reason for Consultation: Acute inferior ST elevation RI Attending Physician: Simón Eric MD History of Present Illness 33-year-old diabetic male who is a smoker presented after developing 8 out of 10 substernal chest pressure, malaise, and dyspnea. In the emergency department he was found to have acute inferior ST elevation RI by EKG criteria. He was provided aspirin 324 mg and ticagrelor 180 mg p.o. x 1. A "heart alert" was called and on my arrival the patient continued with chest pain. After reviewing the EKG I discussed the risk, benefits, and alternatives to cardiac catheterization with the patient. Risk include but are not limited to; , stroke, RI, renal failure, adverse drug reaction, infection, bleed, and the need for emergent surgery. Lack of onsite cardiac surgical backup was also discussed. Plan for air evacuation in the event of an emergency not treatable here. I also told him that the risk of doing nothing in this case is higher than the risk of the procedure. He voiced understanding and wished to proceed with catheterization. Patient was therefore taken emergently to the cardiac catheterization suite where he underwent diagnostic coronary angiography and PCI of the RCA with implantation of 2 overlapped drug-eluting stents. Good angiographic results. He did require amiodarone for ventricular tachycardia but never lost consciousness or required CPR. PCI completely resolved his symptoms and he is now admitted to the ICU for further workup and management. I spoke with his mother who was present in the ER and she informed me that he has a strong family history of coronary disease. The patient's uncle had a myocardial infarction at a young age and then had a second myocardial infarction from which she at age 38. She also tells me she is spoken with the patient many times and advised him to stop smoking and keep his diabetes under control with a better diet but he has not been compliant. Preceding today, patient had not had any chest pain, shortness of breath, syncope, near syncope, orthopnea, PND, racing heartbeat, palpitations, or edema. He suffers from bipolar disorder and has been coming off of his medications. He voices no other complaints or concerns at this time. Allergies Allergy/AdvReac Type Severity Reaction Status Date / Time oxcarbazepine Allergy Severe UNKNOWN Verified 07/04/24 15:58 Home Medications Medication Instructions Recorded Confirmed Type divalproex 500 mg tablet,extended 500 mg PO HS 04/27/22 07/04/24 History release 24 hr Patient History Family History Father Bipolar disorder Brother Bipolar disorder Grandfather (Maternal) Cerebral aneurysm Grandmother (Maternal) Diabetes Social History Smoking Status: Current every day smoker Tobacco Type: E-cigarettes / Vaping Hx Alcohol Use: Yes Hx Substance Use: No Preferred Language: Bots[place]an Current Living Situation: Alone current occupational status: employed Feels Safe at Home: Yes Gender Identity: Male Assistive Devices: None Review of Systems Review of Systems: Negative except as per HPI Physical Exam Constitutional: WD/WN, vitals as above Neck: No JVD or bruits Respiratory: Clear to auscultation bilaterally. No wheezing, rhonchi, or rales Cardiovascular: Regular rate and rhythm. S4 gallop. I do not appreciate any rubs or murmurs in the emergency department. No edema. Pulses are 2+ and symmetric. Musculoskeletal: no cyanosis or clubbing, extremities motor strength 5/5 Neurologic: Cognition is intact. Speech is fluent. No focal deficits. No tremor. Psychiatric: A+Ox3, euthymic affect (He is somewhat stoic with a flat affect.) Results & Data Vital Signs (Past 12 Hours) Vital Signs Temp Pulse Pulse Resp BP BP Pulse Ox 07/04/24 17:30 84 23 97 07/04/24 17:30 07/04/24 17:24 89 16 125/87 97 07/04/24 16:17 94 H 18 107/60 97 07/04/24 16:07 07/04/24 16:04 163/105 H 07/04/24 16:04 163/105 H 07/04/24 16:04 163/105 H 07/04/24 16:04 163/105 H 07/04/24 16:00 100 07/04/24 16:00 99 07/04/24 15:58 60 14 174/116 H 99 07/04/24 15:56 174/116 H 07/04/24 15:56 174/116 H 07/04/24 15:42 36.1 C L 64 19 177/107 H 98 O2 Del Method 07/04/24 17:30 07/04/24 17:30 Room Air 07/04/24 17:24 07/04/24 16:17 Room Air 07/04/24 16:07 Room Air 07/04/24 16:04 07/04/24 16:04 07/04/24 16:04 07/04/24 16:04 07/04/24 16:00 07/04/24 16:00 Room Air 07/04/24 15:58 Room Air 07/04/24 15:56 07/04/24 15:56 07/04/24 15:42 Room Air PG Care Time/CCT Total # of Minutes Spent Total Time Spent with Patient: Total time spent is greater than 50% in coordination of care (as documented) at patient's floor/unit and/or counseling patient: I spent a total of 45 minutes critical care time in the initial evaluation and discussion with the patient and his family, examination of the patient, review of available records, discussion with the care team, formulation and implementat ion of a plan of care and all associated documentation. This time is exclusive of the time spent for the procedure. Coding Level of Care Code 27684 CRITICAL CARE 1ST 30-74M Diagnoses STEMI (ST elevation myocardial infarction) I21.3 Hyperlipidemia E78.5 Benign essential hypertension I10 Time Spent (min) 45
--- NOTE | 2024-07-04 18:42 | Critical Care Consultation ---
Date of Consultation July 04, 2024 Assessment & Plan (1) STEMI (ST elevation myocardial infarction): (2) Schizoaffective disorder, bipolar type: (3) Benign essential hypertension: Plan Reason Critically Ill: STEMI s/p AURELIA x2 overlapping stents. To ICU for hemodynamic monitoring post PCI Neuro - No acute needs CAM ICU: NEGATIVE - Continue Depakote for schizoaffective disorder Cardiac - STEMI, S/p AURELIA x2, HTN - Received 2 AURELIA stents overlapping today-symptom free at this time- TR band per protocol - Follow telemetry and symptomatology - DAPT therapy per cardiology - HTN- BB initiated, ECHO in morning then GDMT based on ECHO - HLD- high intensity statin - HGB A1c pending- GDMT as directed Respiratory - No acute needs - Vapes as outpatient- encourage cessation GI - NO acute needs - Advance diet as tolerated RENAL/LYTES - No acute needs - ICU electrolyte protocol - NO acute needs ENDO - No acute needs - as above with pending HGB a1C HEME - No acute needs ID -no concern for infectious etiology at this time LINES/IV ACCESS - PIV Continue use of these lines DVT PROPHYLAXIS - SCDs, ASA/Brilinta, ambulation DISPO: ICU 24 hours post PCI for following of symptoms, ECG, and hemodynamics I have personally spent 40 minutes of time in the direct management of this patient. This is a life/limb threatening event. This includes time spent evaluating patient, direct bedside care, chart review, placing orders, interpretation of diagnostic studies, discussion with consultants, patient, and family members, as well as other required patient management activities. This time is exclusive of all separately billable procedures, and separate from and in addition to any other critical care service time. Thank you for allowing us to participate in the care of this patient. Please refer to my attending physician's documentation for any further recommendations. History of Present Illness Reason for Consultation: STEMI Requesting Physician: Simón Eric MD Attending Physician: Simón Eric MD History of Present Illness 33 YOM presents to the ER for chest pain. The pain started at work this morning while he was taking out the garbage, the pain was sharp and associated with shortness of breath. He was sent home from work and came to the ER. In the ER the patient was noted to have STEMI and was taken urgently to the cathode builder. He had PCI performed with 2 overlapping AURELIA. Patient is seen in the ICU following procedure. He is awake on no vasoactive medications or oxygen needs. He is also without chest pain or arrhythmia currently. Right TR Band in place without hematoma and sensation and CV eval of the right arm is intact. CODE: FULL Allergies Allergy/AdvReac Type Severity Reaction Status Date / Time oxcarbazepine Allergy Severe UNKNOWN Verified 07/04/24 15:58 Home Medications Medication Instructions Recorded Confirmed Type divalproex 500 mg tablet,extended 500 mg PO HS 04/27/22 07/04/24 History release 24 hr Patient History Family History Father Bipolar disorder Brother Bipolar disorder Grandfather (Maternal) Cerebral aneurysm Grandmother (Maternal) Diabetes Social History Smoking Status: Former smoker Tobacco Type: E-cigarettes / Vaping Cigarettes Per Day: vaping to stop smoking; Hx Alcohol Use: No Hx Substance Use: No Preferred Language: Lithuanian Communication Ability: Effective Hotel Controller Required: No Beliefs That Will Affect Care: None Current Living Situation: Alone current occupational status: employed Feels Safe at Home: Yes Safety Concerns: Feels Safe At This Time Gender Identity: Male Assistive Devices: None Review of Systems Review of Systems: REVIEW OF SYSTEMS: Constitutional: No fever, sweats or chills Eyes: No diplopia, no worsening or blurred vision ENT: normal hearing, no trouble swallowing Respiratory: (+) vapes, No cough, sputum, dyspnea at rest or on exertion Cardiovascular: No chest pain, tightness or palpitations Abdomen: No pain, nausea, vomiting, diarrhea or constipation Musculoskeletal: No joint pain, calf pain, swelling Neurologic: No weakness, numbness/tingling, or balance problems Psychiatric: No anxiety or depression Skin: (+) schizoaffective disorder, No rash or itch Physical Exam Physical Exam: PHYSICAL EXAM: General: awake, alert, no apparent distress Head: Normocephalic, atraumatic ENT: PERRL, EOMI, no pharyngeal exudate, mucous membranes moist Neuro: AAO x 3, speech clear and appropriate, strength intact bilaterally 5/5, sensation intact and equal all extremities and dermatomes, no pronator drift Chest: equal rise and fall of the chest, no accessory muscle use, no heaves or thrills, Clear to auscultation, on room air, Cardiac: Regular rate and rhythm, telemetry reviewed, skin warm dry, cap refill <3 seconds, peripheral pulses +2 no JVD, no murmur, right wrist access siste is with TR band in place, normal sensation and cap refill noted of right hand at this time. GI: NABS x 4 quadrants, soft, nontender to palpation, no rebound, guarding or tenderness : Spontaneously voiding, no pain, no CVA tenderness, Extremities: Normal inspection, no peripheral edema or erythema, calfs nontender to palpation Psych: Normal mood and affect Skin: no rash or erythema Results & Data Results & Data Vital Signs (Past 12 Hours) Vital Signs Temp Pulse Pulse Resp BP BP Pulse Ox 07/04/24 18:33 07/04/24 18:30 79 18 132/96 96 07/04/24 18:15 136/83 07/04/24 18:15 75 15 136/83 98 07/04/24 18:03 37.1 C 07/04/24 18:00 83 13 97 07/04/24 17:57 73 17 96 07/04/24 17:57 134/86 07/04/24 17:55 78 19 125/87 98 07/04/24 17:54 76 20 96 07/04/24 17:30 84 23 97 07/04/24 17:30 07/04/24 17:24 89 16 125/87 97 07/04/24 16:17 94 H 18 107/60 97 07/04/24 16:07 07/04/24 16:04 163/105 H 07/04/24 16:04 163/105 H 07/04/24 16:04 163/105 H 07/04/24 16:04 163/105 H 07/04/24 16:00 100 07/04/24 16:00 99 07/04/24 15:58 60 14 174/116 H 99 07/04/24 15:56 174/116 H 07/04/24 15:56 174/116 H 07/04/24 15:42 36.1 C L 64 19 177/107 H 98 O2 Del Method 07/04/24 18:33 Room Air 07/04/24 18:30 07/04/24 18:15 07/04/24 18:15 07/04/24 18:03 07/04/24 18:00 07/04/24 17:57 07/04/24 17:57 07/04/24 17:55 Room Air 07/04/24 17:54 07/04/24 17:30 07/04/24 17:30 Room Air 07/04/24 17:24 07/04/24 16:17 Room Air 07/04/24 16:07 Room Air 07/04/24 16:04 07/04/24 16:04 07/04/24 16:04 07/04/24 16:04 07/04/24 16:00 07/04/24 16:00 Room Air 07/04/24 15:58 Room Air 07/04/24 15:56 07/04/24 15:56 07/04/24 15:42 Room Air Laboratory Results Abnormal lab results 07/04/24 07/04/24 07/04/24 Range/Units 15:58 16:33 16:47 WBC 13.61 H (4.8-10.8) K/ul MPV 9.2 L (9.4-12.4) fL Neut # (Auto) 9.61 H (1.40-6.50) K/uL [place]on # (Auto) 0.82 H (0.11-0.59) K/uL Activ Coag Time Kaolin 187 H 170 H (94-140) SECONDS Glucose 105 H (70-99(Fasting)) mg/dl AST 52 H (13-39) U/L ALT 72 H (7-52) U/L Troponin I High Sens 26.1 H (0-20) pg/ml 07/04/24 Range/Units 17:54 WBC (4.8-10.8) K/ul MPV (9.4-12.4) fL Neut # (Auto) (1.40-6.50) K/uL Fallon # (Auto) (0.11-0.59) K/uL Activ Coag Time Kaolin (94-140) SECONDS Glucose (70-99(Fasting)) mg/dl AST (13-39) U/L ALT (7-52) U/L Troponin I High Sens 38137.6 H* D (0-20) pg/ml Diagnostic Findings Chest X-Ray 07/04/24 15:46 Chest radiograph, one view History: Chest pain Comparison: 2022 Findings: Single AP view of the chest performed. No focal consolidation or pleural effusion. No pneumothorax. The cardiomediastinal silhouette is within normal limits. Normal pulmonary vascularity. No evidence for lymphadenopathy. No visualized bony or soft tissue abnormality. Impression: Normal chest radiograph Electronically signed by Bridger Juárez 07-04-2024 4:20 PM Medications Administered Home Medications divalproex 500 mg tablet,extended release 24 hr 500 mg PO HS 04/27/22 [History Confirmed 07/04/24] Active Medications Aspirin (Aspirin 81 Mg Ectab) 81 mg PO QAM [facility] Stop: 08/04/24 08:59 Atorvastatin Calcium (Atorvastatin 40 Mg Tab) 40 mg PO QAM [facility] Stop: 08/04/24 08:59 Atropine Sulfate (Atropine Sulfate 0.1 Mg/Ml 10ml Syr) 0.5 mg IV ONCE PRN PRN Reason: bradycardia/hypotension Stop: 08/03/24 16:46 Divalproex Sodium (Divalproex Extended Release 500 Mg Tab) 500 mg PO HS [facility] Stop: 08/03/24 20:59 Metoprolol Tartrate (Metoprolol Tartrate 25 Mg Tab) 25 mg PO BID [facility] Stop: 08/03/24 20:59 Miscellaneous (Icu Protocol For Hyperglycemia) 1 each N/A ACHS [facility] Stop: 07/06/24 20:59 Ondansetron HCl (Ondansetron Inj 2 Mg/Ml 2 Ml Vial) 4 mg IV Q6H PRN PRN Reason: Nausea And Vomiting Stop: 08/03/24 16:46 Ticagrelor (Ticagrelor 90 Mg Tab) 90 mg PO BID [facility] Stop: 08/04/24 08:59 Coding Level of Care Code 76710 INT INP/OBS CARE MIN Diagnoses STEMI (ST elevation myocardial infarction) I21.3 Schizoaffective disorder, bipolar type F25.0 Benign essential hypertension I10
[2024-07-04 20:04] LABS: Estimated Average Glucose 111 mg/dl; Hemoglobin A1C 5.5 % (4.5-5.6)
[2024-07-04] MEDS: DIVALPROEX EXTENDED RELEASE 500 MG TAB PO SCH (20:50)
[2024-07-04] MEDS: METOPROLOL TARTRATE 25 MG TAB PO SCH (20:50)
[2024-07-04] MEDS: ICU Protocol for HYPERglycemia SCH (20:55)
[2024-07-04] MEDS: MAGNESIUM SULFATE / D5W 1 GM/100 ML BAG IV SCH (22:49)
--- NOTE | 2024-07-04 23:30 | Communication Note ---
Date of Service: July 04, 2024 S: ECG rythm/axis change. Noticed on telemetry with change to IVCD/LBB type rhythm with HR 80s, initial patient would break, but now more sustained. Pat ient is He is without chest pain or difficulty breathing and without chest pain breathing. ECG obtained. O: Vitals HR 84, BP 136/95, RR 15, Spo2 97 A/P: [place]/rythm change s/p AURELIA - Provide Mag 2 GM now and 2.5 mg IV Metoprolol if sustained - ECG sent to Dr. Malik to see if any further evaluation or treatment recommended - as he is asymptomatic at this time no further treatment recommended at this time. Appreciate assistance [facility]
[2024-07-04] MEDS: METOPROLOL TARTRATE 1 MG/ML VIAL IV STA (23:33)
[2024-07-05 02:30] LABS: Amphetamines+Metham, Urine Neg (Neg); Barbiturates, Urine Neg (Neg); Benzodiazepine, Urine Pos (Neg); Cocaine, Urine Neg (Neg); Fentanyl, Urine Pos (Neg); MDMA (Ecstacy), Urine Neg (Neg); Marijuana, Urine Pos (Neg); Methadone, Urine Neg (Neg); Opiate, Urine Neg (Neg); Phencyclidine, Urine Neg (Neg)
--- OUTSIDE RECORDS SUMMARY | 2024-07-05 03:09 | External Medical Summary | Summary of Care ---
Author Name Unknown Organization [facility] Address [address] [facility] [place] [address] Phone [phone] Care Team Providers Care Third Rail Installer Name Role Phone Demetrius Hobbs MD Primary Care Provider [phone]- [phone] Reason for Visit * Reason Comments pre-op exam Patient is here toda y for a pre-op exam. Patient states no concerns Encounter Details Date Type Department Care Team (Late st Contact Info) Description 06/25/2024 9:20 AM EDT Office Visit [facility] [address] [phone] Elfego Rivera MD [address] [facility] [place] [address] Schizoaffective disorder, bipolar type (HCC)*; Impacted teeth with abnormal position Allergies No known active allergiesdocumented as of this encounter (statuses as of 06/26/2024) Medications Divalproex Sodium ER 500 MG Oral Tablet Extended Release 24 Hour (Depakote ER) Take 1 Tablet by mouth in the morning and 1 Tablet before bedtime. 1 Active Sertraline HCl 50 MG Oral Tablet (Zoloft) Take 1 Tablet by mouth in the morning. 3 06/26/19 25 Discontinu ed(Patient preference /discontin uation) documented as of this encounter (statuses as of 06/26/2024) Active Problems Problem Noted Date Diagnosed Date Schizoaffective disorder, bipolar type 3 PTSD (post-traumatic stress disorder) 06/13/2022 documented as of this encounter (statuses as of 06/26/2024) Social History Tobacco Use Types Packs/Day Years Used Date Smoking Tobacco: Former Cigarettes Smokeless Tobacco: Never Tobacco Cessation:Counseling Given: Not Answered Alcohol Use Standard Drinks/Week Comments Not Currently 0 (1 standard drink = 0.6 oz pur e alcohol) PHQ-2 Answer Date Recorded PHQ-2 Score -1 01/25/2018 Hunger Vital Sign Answer Date Recorded Within the past 12 months, y ou worried that your food would run out before you got the money to buy more. Never true 06/26/19 25 Within the past 12 months, t he food you bought just didn't last and you didn't have money to get more. Never true 06/25/2024 Childcare Answer Date Recorded Do you feel overwhelmed with taking care of a child, family member or friend? No 06/25/2024 Does your family need help f inding childcare? (Household - for ages 0-17 years) Not on file 06/25/2024 Clothing Answer Date Recorded Have you been unable to get clothing when it was really needed? No 06/25/2024 Is your family able to get c lothes or diapers when needed? (Household - for ages 0-17 years) Not on file 06/25/2024 Personal Safety Answer Date Recorded Do you feel unsafe or have concerns for your saf ety? No 06/25/2024 Do you have concerns for you r family's safety? (Household - for ages 0-17 years) Not on file 06/25/2024 Utilities Answer Date Recorded Do you have trouble paying y our heating, water, or electric bill? No 06/25/2024 Is your family able to pay t he heat, water, or electric bill? (Household - for ages 0-17 years) Not on file 06/25/2024 Does your family have access to good internet? (Household - for ages 0-17 years) Not on file 06/25/2024 Employment Status Answer Date Recorded Are you unemployed or without regular income? No 06/25/2024 Does the household have a re gular source of income? (Household - for ages 0-17 years) Not on file 06/25/2024 Social Connections Answer Date Recorded How often do you feel lonely or isolated from th ose around you? Never 06/25/2024 Financial Resource Strain Answer Date R ecorded Do you have any trouble payi ng for your medications, or do you think you might in the future? No 06/25/2024 Does your family have troubl e paying for medicine? (Household - for ages 0-17 years) Not on file 06/25/2024 Transportation Needs Answer Date Record ed Do you have trouble getting a ride to medical visits or work? (Adult - for ages 18 years and over) Not on file 06/25/2024 Does your family have a hard time getting a ride to doctors visits? (Household - for ages 0-17 years) Not on file 06/25/2024 Has lack of transportation k ept you from medical appointments, meetings, work, or from getting things needed for daily living? Check all that apply. No 06/25/2024 Do you (or your family) have trouble finding or paying for a ride (transportation)? (Household - for ages 0-17 years) Not on file 06/25/2024 Housing Stability Answer Date Recorded Do you currently live in a s helter or have no steady place to sleep at night? No 06/25/2024 Do you think you are at risk of becoming homeless? (Adult - for ages 18 years and over) Not on file 06/25/2024 Does your family worry about paying for your home or becoming homeless? (Household - for ages 0-17 years) Not on file 0 06/25/2024 Are you homeless or worried that you might be in the future? No 06/25/2024 Are you (or your family) walter eless or worried that you might be in the future? (Household - for ages 0-17 years) Not on file Food Insecurity Answer Date Recorded Within the past 12 months, y ou worried that your food would run out before you got the money to buy more. Never true 06/26/19 25 Within the past 12 months, t he food you bought just didn't last and you didn't have money to get more. Never true 06/25/2024 Do you need food for this week? No 06/25/2024 Sex and Gender Information Value Date Recorded Sex Assigned at Not on file Legal Sex Male 7:11 AM EST Gender Identity Not on file Sexual Orientation Straight 08/12/2020 9: 10 AM EDT documented as of this encounter Last Filed Vital Signs Vital Sign Reading Time Taken Comments Blood Pressure 130/98 06/25/2024 9:54 AM EDT Pulse 90 06/25/2024 9:54 AM EDT Temperature 35.7 °C (96.3 °F) 06/25/2024 9:20 AM ED T Respiratory Rate 18 06/25/2024 9:20 AM EDT Oxygen Saturation 98% 06/25/2024 9:20 AM EDT Inhaled Oxygen Concentration - - Weight 122.4 kg (269 lb 12.8 oz) 06/25/2024 9:20 AM EDT Height 187 cm (6' 1.62") 06/25/2024 9:20 AM EDT Body Mass Index 35 06/25/2024 9:20 AM EDT documented in this encounter Progress Notes * Elfego Rivera MD - 06/25/2024 5:12 PM EDT Images from the original note were not included. Subjective Randall Reyna is a 33 year old male that presents for pre-op exam (Patient is here today for a pre-op exam. /Patient states no concerns/) History of Present Illness The patient, a 33-year-old with a history of mood disorder managed with Depakote, presents for a preoperative evaluation prior to wisdom teeth extraction. He reports that he has been experiencing tooth pain for a few weeks. Upon dental examination and x-rays, it was found that the wisdom teeth were impacted and misaligned, causing discomfort and potentially damaging adjacent teeth. The patient isscheduled to have five teeth extracted by an oral surgeon in [place]. The patient has gained significant weight over the past two years, with a total gain of 53 pounds. He is aware of this and has been monitoring his weight at [facility]. He has not reported any other medical concerns such as headaches, abnormal bleeding, or recurrent nosebleeds. The patient quit smoking in April after a 12-year habit. He is currently employed at a local convenience store. He has not reported any recent fevers or chronic cough. Objective BP 130/98 | Pulse 90 | Temp 96.3 °F (35.7 °C) (Tympanic) | Resp 18 | Ht 6' 1.62" (1.87 m) | Wt 269 lb 12.8 oz (122.4 kg) | SpO2 98% | BMI 35.00 kg/m² | BSA 2.52 m² Physical Exam MEASUREMENTS: Weight- 269. HEENT: Pharynx clear, dentition normal, pupils reactive to light, conjunctiva pink. NECK: Neck supple, no cervical adenopathy. CHEST: Lungs clear to auscultation. CARDIOVASCULAR: Regular rhythm, no murmur. ABDOMEN: Abdomen soft, non-tender, no masses. EXTREMITIES: No ankle edema. Results RADIOLOGY Dental X-ray: Impacted teeth, one tooth malpositioned affecting adjacent tooth Assessment and Plan Assessment & Plan Impacted wisdom teeth Scheduled for removal of five teeth, including impacted wisdom teeth causing pain and misalignment.Procedure by Dr. Foreign Chavez at hospital due to clinic staffing limitations. Informed consent to be obtained on surgery day. - Fax necessary forms to hospital. - Instruct him to hand-carry original packet to hospital. - Remind him to abstain from eating . Medicall optimized. No further studies needed before surgery Weight gain Gained 53 pounds over two years. Aware and monitoring weight at [facility]. Hypertension Diastolic blood pressure elevated at 96 mmHg, atypical for him. Possible anxiety-related elevation. - Recheck blood pressure before departure. Bipolar disorder On Depakote 500 mg nightly for mood stabilization. No longer on sertraline or other medications from [facility]. Tobacco use disorder, in remission Quit smoking in early April after 12 years. Reports no current tobacco use. Tetanus immunization status Received tetanus shot in January 2021, valid for 10 years. Wrap-Up I spent a total of 20-29 minutes (exact time 24 mins) on the date of service in preparation, delivery, and documentation of the care provided to Randall Reyna excluding any time spent in the performance of separately billed services. Text in this note was generated using an ambient documentation service. I discussed the use of a device to record and summarize our discussion today. All persons present during the encounter consented to its use. documented in this encounter Nursing Notes * Autumn Cardenas LPN - 06/25/2024 9:20 AM EDT The patient has been properly identified by confirmation of name and date of . Chief Complaint Patient presents with pre-op exam Patient is here today for a pre-op exam. Patient states no concerns documented in this encounter Plan of Treatment Health Maintenance Due Date Last Done Comments HIV Screening 08/17/2007 Hepatitis C Screening 2010 COVID-19 Vaccine ( season) 2023 03/11/2021, 02/11/2021 Influenza Vaccine (FLU shot) (Season Ended) 2024 DTap/Tdap Vaccines (7 - Td or Tdap) 02/11/2031 02/11/2021, 01/01/1997, 12/17/1993, Additional history exists Hepatitis B Vaccine Completed 12/15/1993, 12/15/1993, 12/15/1993, Additional history exists HPV (Gardasil) Vaccine Aged Out No lo nger eligible based on patient's age to complete this topic MENINGOCOCCAL (MENACTRA/MENVEO) Aged Out No longer eligible based on patient's age to complete this topic Meningitis B Vaccine (Bexsero/Trumemba) Aged Out No longer eligible based on patient's age to complete this topic Pneumococcal Vaccine: Pediatrics (0 to 5 Years) and At-Risk Patients (6 to 18 Years and 19+ Years) Aged Out No longer eligib le based on patient's age to complete this topic documented as of this encounter Medical Devices Not on filedocumented as of this encounter Visit Diagnoses Diagnosis Schizoaffective disorder, bipolar type (HCC)- Primary Schizoaffective disorder, unspecified condition Impacted teeth with abnormal position Disturbances in tooth eruption documented in this encounter Care Teams Third Rail Installer Relationship Specialty Start Date End Date Demetrius Hobbs MD [address] [id number] PCP - General Family Medicine 08/11/20 documented as of this encounter
--- OUTSIDE RECORDS SUMMARY | 2024-07-05 03:09 | External Medical Summary | Summary of Care ---
Author Name Unknown Organization [facility] Address [address] [place] [address] Phone [phone] Care Team Providers Care Pile Driving Technician Name Role Phone Demetrius Hobbs MD Primary Care Provider [phone]- [phone] Encounter Details Date Type Department Care Team (Late st Contact Info) Description 04/12/2024 Population Health External Data Unspecified Department Allergies No known active allergiesdocumented as of this encounter (statuses as of 04/12/2024) Medications Divalproex Sodium ER 500 MG Oral Tablet Extended Release 24 Hour (Depakote ER) Take 1 Tablet by mouth in the morning and 1 Tablet before bedtime. 09/03/2020 Active Sertraline HCl 50 MG Oral Tablet (Zoloft) Take 1 Tablet by mouth in the morning. 05/26/2022 Active documented as of this encounter (statuses as of 04/12/2024) Active Problems Problem Noted Date Diagnosed Date Schizoaffective disorder, bipolar type PTSD (post-traumatic stress disorder) 06/13/2022 documented as of this encounter (statuses as of 04/12/2024) Social History Tobacco Use Types Packs/Day Years Used Date Smoking Tobacco: Every Day Smokeless Tobacco: Never Alcohol Use Standard Drinks/Week Comments Not Asked 0 (1 standard drink = 0.6 oz pur e alcohol) PHQ-2 Answer Date Recorded PHQ-2 Score -1 01/25/2018 Utilities Answer Date Recorded Do you have trouble paying y our heating, water, or electric bill? (Adult - for ages 18 years and over) Not on file 09/06/2023 Is your family able to pay t he heat, water, or electric bill? (Household - for ages 0-17 years) Not on file 09/06/2023 Does your family have access to good internet? (Household - for ages 0-17 years) Not on file 09/06/2023 Social Connections Answer Date Recorded How often do you feel lonely or isolated from those around you? (Adult - for ages 18 years and over) Not on file 09/06/2023 Sex and Gender Information Value Date Recorded Sex Assigned at Not on file Legal Sex Male 7:11 AM EST Gender Identity Not on file Sexual Orientation Straight 08/12/2020 9: 10 AM EDT documented as of this encounter Plan of Treatment Health Maintenance Due Date Last Done Comments DTap/Tdap Vaccines (6 - Tdap) 08/17/2003 01/01/1997, 12/17/1993, 03/30/1993, Additional history exists HIV Screening 08/17/2007 Hepatitis C Screening 2010 Pneumococcal Vaccine: Pediatrics (0 to 5 Years) and At-Risk Patients (6 to 18 Years and 19+ Years) (1 of 2 - PCV) 08/17/2011 COVID-19 Vaccine (1 - season) 2023 Influenza Vaccine (FLU shot) (#1) 2023 Hepatitis B Vaccine Completed 12/15/1993, 1992, 1992 HPV (Gardasil) Vaccine Aged Out No lo nger eligible based on patient's age to complete this topic MENINGOCOCCAL (MENACTRA/MENVEO) Aged Out No longer eligible based on patient's age to complete this topic documented as of this encounter Medical Devices Not on filedocumented as of this encounter Care Teams Pile Driving Technician Relationship Specialty Start Date End Date Demetrius Hobbs MD PCP - General Family Medicine 08/11/20 documented as of this encounter
[2024-07-05 05:01] LABS: Hematocrit (blood only) 43.3 % (42.0-52.0); Hemoglobin 15.1 g/dl (14.0-18.0); Mean Corpuscular Hemoglobin 29.7 pg (25.0-34.0); Mean Corpuscular Hgb Conc 34.9 g/dL (32.0-36.0); Mean Corpuscular Volume 85.1 fL (80.0-100.0); Mean Platelet Volume 9.3 fL (9.4-12.4); Platelet Count 285 K/uL (130-400); RDW Coefficient of Variation 12.9 % (11.5-14.5); RDW Standard Deviation 39.8 fL (36.4-46.3); Red Blood Count 5.09 M/uL (4.70-6.10); White Blood Count 12.61 K/ul (4.8-10.8)
[2024-07-05 05:38] LABS: BUN Creatinine Ratio 14.1 (10-20); Chol HDL Ratio 5.4 (0-5); Creatinine Clr Calc Pharmacy 187.5 ml/min
[2024-07-05 06:01] LABS: Troponin I High Sensitivity 40813.8 pg/ml (0-20)
[2024-07-05] MEDS: TICAGRELOR 90 MG TAB PO SCH (07:47)
[2024-07-05] MEDS: ATORVASTATIN 40 MG TAB PO SCH (07:47)
[2024-07-05] MEDS: ASPIRIN 81 MG ECTAB PO SCH (07:47)
--- NOTE | 2024-07-05 09:17 | Electrocardiogram Report ---
Test Reason : Blood Pressure : */* mmHG Vent. Rate : 57 BPM Atrial Rate : 57 BPM P-R Int : 158 ms QRS Dur : 88 ms QT Int : 378 ms P-R-T Axes : 24 41 76 degrees QTcB Int : 367 ms Sinus bradycardia with sinus arrhythmia Inferior infarct , possibly acute ACUTE MT / STEMI Consider right ventricular involvement in acute inferior infarct Abnormal ECG No previous ECGs available Confirmed by Bridger Milner ([id number]) on 07/05/2024 9:16:49 AM Referred By: Confirmed By: Bridger Milner
--- NOTE | 2024-07-05 13:31 | Electrocardiogram Report ---
Test Reason : Blood Pressure : */* mmHG Vent. Rate : 69 BPM Atrial Rate : 69 BPM P-R Int : 188 ms QRS Dur : 88 ms QT Int : 392 ms P-R-T Axes : 45 -10 21 degrees QTcB Int : 420 ms Normal sinus rhythm possible Inferior infarct (cited on or before 04-Jul-2024) Abnormal ECG Confirmed by Bridger Milner ([id number]) on 07/05/2024 1:30:30 PM Referred By: REFERRED SELF Confirmed By: Bridger Milner
--- NOTE | 2024-07-05 14:11 | Hospitalist Progress Note ---
Date of Service July 05, 2024 Assessment & Plan (1) STEMI (ST elevation myocardial infarction): (2) Hyperlipidemia: (3) Schizoaffective disorder, bipolar type: Plan 33 year old male with PMH of hyperlipidemia and bipolar disorder who presented to the ED today with chest pain and was found to have a STEMI. ST segment elevation myocardial infarction --S/P Successful PCI with implantation of 2 overlapped drug-eluting stents to the proximal RCA --ECHO: Mild concentric LVH. Moderate sized apical, inferior and posterior wall motion abnormality with hypokinesis of the segments. Left ventricle systolic function is mildly reduced. EF 40 to 45%. LV diastolic function is normal. No significant valvular heart disease --Lipid Panel: TC: 173, LDL:116, HDL 32 -- HbA1c 5.5 Continue aspirin 81 mg daily, Lipitor 40 mg daily, Brilinta 90 mg twice a day Continue metoprolol 25 mg twice a day Appreciate cardiology input Schizoaffective disorder, bipolar type Continue Depakote Obesity BMI 35.4 DVT Px: SCDs for now Code Status Full Code Admission and Anticipated Discharge Date Admission Date: July 04, 2024 Subjective Patient is seen and examined at bedside States feeling well today Chest pain resolved Denies any dyspnea, nausea, vomiting, abdominal pain, dizziness Offers no other complaints today Review of Systems Review of Systems: All systems reviewed & are unremarkable except as noted in Subjective Physical Exam Physical Exam: Physical Exam: Vitals signs as noted above General Appearance:Obese, no apparent distress Head: normocephalic, Atraumatic Eyes: normal inspection, EOMI Neck: supple, Trachea midline Respiratory/Chest: Normal breath sounds, CTA, No accessory muscle use Cardiovascular: S1, S2, No murmur Abdomen/GI:Soft, Non tender, Bowel sounds present Extremities/Musculoskeletal:normal inspection, no edema Neurologic/Psych:AAOX3, grossly no focal neurological deficits Skin: normal color, warm Results & Data Results & Data Vital Signs (Past 12 Hours) Vital Signs Temp Pulse Pulse Resp BP BP Pulse Ox 07/05/24 12:18 36.7 C 74 16 135/83 98 07/05/24 12:00 66 22 07/05/24 11:54 68 18 07/05/24 11:33 96 H 21 07/05/24 11:24 82 18 07/05/24 11:09 57 L 16 07/05/24 10:57 55 L 14 07/05/24 10:30 57 L 18 07/05/24 10:18 59 L 14 07/05/24 10:00 60 15 07/05/24 09:48 61 13 07/05/24 09:33 64 19 07/05/24 09:18 73 18 07/05/24 09:12 71 14 07/05/24 08:48 79 13 07/05/24 08:39 89 21 07/05/24 08:24 71 20 07/05/24 08:00 125/84 07/05/24 08:00 125/84 07/05/24 08:00 125/84 07/05/24 08:00 67 17 95 07/05/24 07:56 122/89 07/05/24 07:56 122/89 07/05/24 07:42 71 20 95 07/05/24 07:03 71 16 96 07/05/24 06:31 126/83 07/05/24 06:31 126/83 07/05/24 06:30 65 16 07/05/24 06:06 66 14 96 07/05/24 06:01 127/90 07/05/24 05:42 53 L 15 95 07/05/24 05:30 63 14 97 07/05/24 05:30 136/72 07/05/24 05:01 110/94 07/05/24 05:00 79 14 97 07/05/24 04:36 65 14 95 07/05/24 04:31 127/86 07/05/24 04:27 73 18 98 07/05/24 04:09 63 14 96 07/05/24 04:01 127/95 07/05/24 04:01 127/95 07/05/24 03:57 56 L 15 95 07/05/24 03:39 53 L 16 96 07/05/24 03:03 60 15 96 07/05/24 03:01 124/83 07/05/24 03:01 124/83 07/05/24 02:54 73 14 96 07/05/24 02:51 60 14 96 07/05/24 02:31 121/85 O2 Del Method 07/05/24 12:18 Room Air 07/05/24 12:00 07/05/24 11:54 07/05/24 11:33 07/05/24 11:24 07/05/24 11:09 07/05/24 10:57 07/05/24 10:30 07/05/24 10:18 07/05/24 10:00 07/05/24 09:48 07/05/24 09:33 07/05/24 09:18 07/05/24 09:12 07/05/24 08:48 07/05/24 08:39 07/05/24 08:24 07/05/24 08:00 07/05/24 08:00 07/05/24 08:00 07/05/24 08:00 07/05/24 07:56 07/05/24 07:56 07/05/24 07:42 07/05/24 07:03 07/05/24 06:31 07/05/24 06:31 07/05/24 06:30 07/05/24 06:06 07/05/24 06:01 07/05/24 05:42 07/05/24 05:30 07/05/24 05:30 07/05/24 05:01 07/05/24 05:00 07/05/24 04:36 07/05/24 04:31 07/05/24 04:27 07/05/24 04:09 07/05/24 04:01 07/05/24 04:01 07/05/24 03:57 07/05/24 03:39 07/05/24 03:03 07/05/24 03:01 07/05/24 03:01 07/05/24 02:54 07/05/24 02:51 07/05/24 02:31 Laboratory Results Short CBC 07/04/24 07/05/24 Range/Units 15:58 04:28 WBC 13.61 H 12.61 H (4.8-10.8) K/ul Hgb 16.7 15.1 (14.0-18.0) g/dl Hct 48.7 43.3 (42.0-52.0) % Plt Count 343 285 (130-400) K/uL BMP 07/04/24 07/05/24 15:58 04:28 Sodium 140 138 Potassium 4.1 4.0 Chloride 102 106 Carbon Dioxide 30 26 BUN 10 11 Creatinine 0.98 0.78 Glucose 105 H 95 Calcium 9.9 9.0 Liver Function 07/04/24 Range/Units 15:58 Total Bilirubin 0.6 (0.2-1.0) mg/dl AST 52 H (13-39) U/L ALT 72 H (7-52) U/L Alkaline Phosphatase 83 (34-104) U/L Albumin 4.6 (3.4-5.0) gm/dl
--- NOTE | 2024-07-05 14:58 | Cardiology Consultation ---
Date of Consultation July 05, 2024 Assessment & Plan (1) STEMI (ST elevation myocardial infarction): * Continue aspirin 81 mg daily (lifelong therapy) * Continue Brilinta 90 mg twice daily, likely for 1 year * Transition metoprolol to tartrate to metoprolol succinate 25 mg daily * Add lisinopril 2.5 mg daily. * Stable for transfer to PCU. * Outpatient cardiac rehab (2) Benign essential hypertension: * Metoprolol succinate 25 mg daily, lisinopril 2.5 mg daily (3) Hyperlipidemia: * LDL cholesterol, 116 mg/dL. Atorvastatin 40 mg daily. History of Present Illness Attending Physician: Braydon Wolff MD History of Present Illness Mr Reyna is a 33 year old male seen in general cardiology consultation per the request of CHANDLER Gill for follow up an an inferior ST segment elevation myocardial infarction. 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 He had abrupt onset of chest discomfort while taking out the trash with associated heavy perspiration. EKG on arrival yesterday at [address] segment elevation with reciprocal changes in the anterior leads. The patient underwent emergent cardiac catheterization by Dr. 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 A 40% stenosis of the mid LAD was noted as well as a 50 to 70% stenosis of the first diagonal branch of the LAD and a 99% stenosis of the the diagonal 2 branch which was a small vessel. The patient und erwent PCI and placement of 2 overlapping drug-eluting stents in the proximal right coronary artery. Patient feels well today without recurrence of symptoms. Telemetry currently reveals sinus rhythm in the 70s. Episodes of accelerated idioventricular rhythm were observed from 4:42 AM to 5:13 AM with ventricular rates in the range of 60 to 70 bpm this morning which is subsequently resolved. Past Medical History Hypertension Dyslipidemia Schizoaffective disorder Family History Myocardial infarction in the patient's uncle with the patient believes that that was "drug-induced " The patient states his father who is currently in half-way carries a diagnosis of bipolar disorder Brother with bipolar disorder Social History Former smoker, quit 4 months ago Employed at a local [employer], prepares food, cashier or checker stock clerk Allergies Allergy/AdvReac Type Severity Reaction Status Date / Time oxcarbazepine Allergy Severe UNKNOWN Verified 07/04/24 15:58 Home Medications Medication Instructions Recorded Confirmed Type divalproex 500 mg tablet,extended 500 mg PO HS 04/27/22 07/04/24 History release 24 hr Patient History Family History Father Bipolar disorder Brother Bipolar disorder Grandfather (Maternal) Cerebral aneurysm Grandmother (Maternal) Diabetes Social History Smoking Status: Former smoker Tobacco Type: E-cigarettes / Vaping Cigarettes Per Day: vaping to stop smoking; Hx Alcohol Use: No Hx Substance Use: No Preferred Language: [place]an Communication Ability: Effective 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 Beliefs That Will Affect Care: None Current Living Situation: Alone current occupational status: employed Feels Safe at Home: Yes Gender Identity: Male Assistive Devices: None Review of Systems Review of Systems: All systems reviewed & are unremarkable except as noted in HPI & below Physical Exam Physical Exam: Temp Pulse Resp BP Pulse Ox O2 Del Method 36.7 C 64 30 H 130/90 98 Room Air 07/05/24 12:18 07/05/24 14:25 07/05/24 14:00 07/05/24 14:25 07/05/24 12:18 07/05/24 12:18 Constitutional: WD/WN, vitals as above Eyes: PERRL, conjunctivae normal, anicteric sclerae Neck: trachea midline Cardiovascular: RRR, no murmur, no edema Vessels: + JVD Extremities: no edema Right radial catheterization access site, clean dry intact, no erythema, no hematoma Gastrointestinal (Abdomen): normal bowel sounds, soft, nontender, no hepatosplenomegaly Neurologic: PERRL, EOMI, accommodation nl, no face palsy, no dysarthria Results & Data Laboratory Results Cardiac Enzymes 07/04/24 07/04/24 07/05/24 Range/Units 15:58 17:54 00:49 AST 52 H (13-39) U/L Troponin I High Sens 26.1 H 48310.6 H* D 31646.2 H* D (0-20) pg/ml 07/05/24 Range/Units 04:28 AST (13-39) U/L Troponin I High Sens 00496.8 H* (0-20) pg/ml Coagulation 07/04/24 Range/Units 15:58 PT 10.1 (9.0-12.0) Seconds APTT 25 (21-31) Seconds Lipids 07/05/24 Range/Units 04:28 Triglycerides 123 (0-150) mg/dl Cholesterol 173 (0-200) mg/dl HDL Cholesterol 32 mg/dl Cholesterol/HDL Ratio 5.4 H (0-5) CBC 07/04/24 07/05/24 Range/Units 15:58 04:28 WBC 13.61 H 12.61 H (4.8-10.8) K/ul RBC 5.69 5.09 (4.70-6.10) M/uL Hgb 16.7 15.1 (14.0-18.0) g/dl Hct 48.7 43.3 (42.0-52.0) % Plt Count 343 285 (130-400) K/uL Neut # (Auto) 9.61 H (1.40-6.50) K/uL Lymph # (Auto) 2.90 (1.20-3.40) K/uL [place] # (Auto) 0.82 H (0.11-0.59) K/uL Eos # (Auto) 0.15 (0.00-0.50) K/uL Baso # (Auto) 0.04 (0.00-0.20) K/uL Comprehensive Metabolic Panel 07/04/24 07/05/24 Range/Units 15:58 04:28 Sodium 140 138 (136-145) mmol/L Potassium 4.1 4.0 (3.5-5.1) mmol/L Chloride 102 106 (98-107) mmol/L Carbon Dioxide 30 26 (21-32) mmol/L BUN 10 11 (6-23) mg/dl Creatinine 0.98 0.78 (0.6-1.4) mg/dl Glucose 105 H 95 (70-99(Fasting)) mg/dl Calcium 9.9 9.0 (8.6-10.3) mg/dl AST 52 H (13-39) U/L ALT 72 H (7-52) U/L Alkaline Phosphatase 83 (34-104) U/L Total Protein 7.9 (6.0-8.3) gm/dl Albumin 4.6 (3.4-5.0) gm/dl Intake and Output 07/04/24 07/05/24 07/05/24 22:59 06:59 14:59 Intake Total 360 / 559.167 199.167 / 559.167 Output Total 900 / 1201 301 / 1201 Balance -540 / -641.833 -101.833 / -641.833 Intake: IV 199.167 / 199.167 Magnesium Sulfate / D5w 1 gm In 199.167 / 199.167 100 ml @ 50 mls/hr IV Q2H KATERIN Rx#:[id number] Oral 360 / 360 Output: Urine 900 / 1200 300 / 1200 # Bowel Movements Other: # Unmeasured Voids 1 1 Weight 121.6 kg 121.6 kg Weight Measurement Method Built in [facility] Patient Weight 07/06/24 06:59 Weight 121.6 kg Diagnostic Findings EKG performed this at 6:03 AM and interpreted dependently: Normal sinus rhythm at 69 bpm, evidence of inferior infarct with noted resolution of the previously observed ST segment elevation Echocardiogram performed and interpret independently: There is a moderate-sized apical, inferior, posterior wall motion abnormality with hypokinesis of the segments. The left ventricular systolic function is mildly reduced with LVEF in the range of 40-45%. The left ventricular diastolic function is normal. There is no significant valvular disease. (1) STEMI (ST elevation myocardial infarction) Involved coronary artery: right coronary artery Qualified Code(s): I21.11 - ST elevation (STEMI) myocardial infarction involving right coronary artery (3) Hyperlipidemia Hyperlipidemia type: mixed hyperlipidemia Qualified Code(s): E78.2 - Mixed hyperlipidemia
--- NOTE | 2024-07-05 15:05 | Cardiology Progress Note ---
Date of Service July 05, 2024 Assessment & Plan (1) STEMI (ST elevation myocardial infarction): Plan: Successful PCI of the RCA. Patient will remain on dual antiplatelet therapy for 1 to 2 years. Guideline directed medical therapy for secondary prevention cur rently includes low-dose aspirin, beta-seamus, and high intensity statin therapy. Because of diabetes he may also benefit from DAIN inhibitor/ARB. His EF is also right at the cusp for those medications. I will be providing post PCI instructions for discharge. (2) Hyperlipidemia: Plan: High risk. High intensity statin therapy ongoing. His untreated LDL was 116 mg/dL meaning that his target is around 58 mg/dL. (3) Benign essential hypertension: Plan: Blood pressure is now controlled. Continue current regimen. Further titration per primary dermatology technician. Plan Patient doing well about 24 hours post PCI. He will likely be appropriate for discharge tomorrow morning. Admission and Anticipated Discharge Date Admission Date: July 04, 2024 Subjective Patient doing well at this time. I saw him in the ICU earlier today. He denies any recurrence of chest pain. He also has no shortness of breath and there is no discomfort at the right radial access site. He did have an episode of AIVR overnight but was completely asymptomatic. He had this also in the [employer] so not surprised. Looks like his rhythm has been fairly stable today. Echo was completed showing anticipated wall motion abnormalities and mild reduction in his EF. Hopefully with appropriate medications and revascularization he will normalize his ejection fraction as he recovers. He would like to return to work as soon as he is appropriate. He will need a letter regarding that. I explained to him that there are some limitations secondary to the catheterization and that full convalescence from the myocardial infarction may take a little while longer although he will be feeling better sooner. We disc ussed his cardiac care going forward. Because he is happy with his primary care provider (Dr. Hobbs) the patient would like to keep all of his care within the [facility] system and therefore has asked that he be seen by [facility] cardiology. Dr. Vargas has been made aware by myself. He will be taking over care. Review of Systems Review of Systems: Negative except as per HPI Physical Exam Constitutional: WD/WN, vitals as above Neck: No JVD or bruits Respiratory: Clear to auscultation bilaterally. No wheezing, rhonchi, or rales Cardiovascular: Regular rate and rhythm. S4 gallop. I do not appreciate any rubs or murmurs. No edema. Pulses are 2+ and symmetric. Musculoskeletal: no cyanosis or clubbing, extremities motor strength 5/5 (Radial access C/D/I. Good distal perfusion.) Neurologic: Cognition is intact. Speech is fluent. No focal deficits. No tremor. Psychiatric: A+Ox3, euthymic affect (He is somewhat stoic with a flat affect.) Results & Data Vital Signs (Past 12 Hours) Vital Signs Temp Pulse Pulse Resp BP BP Pulse Ox 07/05/24 14:25 64 130/90 07/05/24 14:00 82 30 H 07/05/24 14:00 130/90 07/05/24 14:00 130/90 07/05/24 14:00 130/90 07/05/24 13:48 66 17 07/05/24 13:33 75 17 07/05/24 13:24 73 16 07/05/24 13:09 67 16 07/05/24 12:45 84 20 07/05/24 12:30 70 13 07/05/24 12:24 78 14 07/05/24 12:18 36.7 C 74 16 135/83 98 07/05/24 12:17 135/83 07/05/24 12:17 135/83 07/05/24 12:12 90 07/05/24 12:00 66 22 07/05/24 11:54 68 18 07/05/24 11:33 96 H 21 07/05/24 11:24 82 18 07/05/24 11:09 57 L 16 07/05/24 10:57 55 L 14 07/05/24 10:30 57 L 18 07/05/24 10:18 59 L 14 07/05/24 10:00 60 15 07/05/24 09:48 61 13 07/05/24 09:33 64 19 07/05/24 09:18 73 18 07/05/24 09:12 71 14 07/05/24 08:48 79 13 07/05/24 08:39 89 21 07/05/24 08:24 71 20 07/05/24 08:00 125/84 07/05/24 08:00 125/84 07/05/24 08:00 125/84 07/05/24 08:00 67 17 95 07/05/24 07:56 122/89 07/05/24 07:56 122/89 07/05/24 07:42 71 20 95 07/05/24 07:03 71 16 96 07/05/24 06:31 126/83 07/05/24 06:31 126/83 07/05/24 06:30 65 16 07/05/24 06:06 66 14 96 07/05/24 06:01 127/90 07/05/24 05:42 53 L 15 95 07/05/24 05:30 63 14 97 07/05/24 05:30 136/72 07/05/24 05:01 110/94 07/05/24 05:00 79 14 97 07/05/24 04:36 65 14 95 07/05/24 04:31 127/86 07/05/24 04:27 73 18 98 07/05/24 04:09 63 14 96 07/05/24 04:01 127/95 07/05/24 04:01 127/95 07/05/24 03:57 56 L 15 95 07/05/24 03:39 53 L 16 96 07/05/24 03:03 60 15 96 07/05/24 03:01 124/83 07/05/24 03:01 124/83 O2 Del Method 07/05/24 14:25 07/05/24 14:00 07/05/24 14:00 07/05/24 14:00 07/05/24 14:00 07/05/24 13:48 07/05/24 13:33 07/05/24 13:24 07/05/24 13:09 07/05/24 12:45 07/05/24 12:30 07/05/24 12:24 07/05/24 12:18 Room Air 07/05/24 12:17 07/05/24 12:17 07/05/24 12:12 07/05/24 12:00 07/05/24 11:54 07/05/24 11:33 07/05/24 11:24 07/05/24 11:09 07/05/24 10:57 07/05/24 10:30 07/05/24 10:18 07/05/24 10:00 07/05/24 09:48 07/05/24 09:33 07/05/24 09:18 07/05/24 09:12 07/05/24 08:48 07/05/24 08:39 07/05/24 08:24 07/05/24 08:00 07/05/24 08:00 07/05/24 08:00 07/05/24 08:00 07/05/24 07:56 07/05/24 07:56 07/05/24 07:42 07/05/24 07:03 07/05/24 06:31 07/05/24 06:31 07/05/24 06:30 07/05/24 06:06 07/05/24 06:01 07/05/24 05:42 07/05/24 05:30 07/05/24 05:30 07/05/24 05:01 07/05/24 05:00 07/05/24 04:36 07/05/24 04:31 07/05/24 04:27 07/05/24 04:09 07/05/24 04:01 07/05/24 04:01 07/05/24 03:57 07/05/24 03:39 07/05/24 03:03 07/05/24 03:01 07/05/24 03:01 PG Care Time/CCT Total # of Minutes Spent Total Time Spent with Patient: Total time spent is greater than 50% in coordination of care (as documented) at patient's floor/unit and/or counseling patient: Coding Level of Care Code 78532 SUB INP/OBS CARE 2/35MIN Diagnoses STEMI (ST elevation myocardial infarction) I21.3 Hyperlipidemia E78.5 Benign essential hypertension I10
[2024-07-06] MEDS: METOPROLOL SUCC 25MG EXT REL TAB PO SCH (08:59)
[2024-07-06] MEDS: lisinopril 2.5 MG TAB PO SCH (08:59)
[2024-07-06 09:21] LABS: Hematocrit (blood only) 50.3 % (42.0-52.0); Hemoglobin 17.2 g/dl (14.0-18.0); Mean Corpuscular Hemoglobin 29.6 pg (25.0-34.0); Mean Corpuscular Hgb Conc 34.2 g/dL (32.0-36.0); Mean Corpuscular Volume 86.6 fL (80.0-100.0); Mean Platelet Volume 9.2 fL (9.4-12.4); Platelet Count 318 K/uL (130-400); RDW Coefficient of Variation 12.9 % (11.5-14.5); RDW Standard Deviation 40.6 fL (36.4-46.3); Red Blood Count 5.81 M/uL (4.70-6.10); White Blood Count 10.97 K/ul (4.8-10.8)
[2024-07-06 09:28] LABS: BUN Creatinine Ratio 18.3 (10-20); Calcium 9.5 mg/dl (8.6-10.3); Creatinine Clr Calc Pharmacy 176.3 ml/min; Magnesium 1.9 mg/dl (1.7-2.4); Potassium 4.1 mmol/L (3.5-5.1)
--- NOTE | 2024-07-06 09:48 | Cardiology Progress Note ---
Date of Service July 06, 2024 Assessment & Plan (1) STEMI (ST elevation myocardial infarction): Plan: * Continue aspirin 81 mg daily (lifelong therapy) * Continue Brilinta 90 mg twice daily, likely for 1 year * Transition metoprolol to tartrate to metoprolol succinate 25 mg daily * Added lisinopril 2.5 mg daily. * Outpatient cardiac rehab * Stable for discharge to home. * Return to work in a week. (2) Benign essential hypertension: Plan: * Metoprolol succinate 25 mg daily, lisinopril 2.5 mg daily (3) Hyperlipidemia: Plan: * LDL cholesterol, 116 mg/dL. Atorvastatin 40 mg daily. Admission and Anticipated Discharge Date Admission Date: July 04, 2024 Subjective Patient seen in cardiology follow up. Feel well. Denies chest pain, palpitations, or dizziness. Telemetry reveals SR in the 70s, occasional PVCs and PACs. No recurrence of the accelerated idioventricular rhythm observed on 07/05/24. Physical Exam Physical Exam: Temp Pulse Resp BP Pulse Ox O2 Del Method 36.6 C 86 18 133/87 97 Room Air 07/06/24 07:32 07/06/24 07:32 07/06/24 07:32 07/06/24 07:32 07/06/24 07:32 07/06/24 07:32 Constitutional: WD/WN, vitals as above Eyes: PERRL, conjunctivae normal, anicteric sclerae Neck: trachea midline Cardiovascular: RRR, no murmur, no edema Extremities: no edema Gastrointestinal (Abdomen): normal bowel sounds, soft, nontender, no hepatosplenomegaly Neurologic: PERRL, EOMI, accommodation nl, no face palsy, no dysarthria Results & Data Vital Signs (Past 12 Hours) Vital Signs Temp Pulse Pulse Resp BP BP Pulse Ox 07/06/24 07:32 36.6 C 86 18 133/87 97 07/06/24 04:37 36.6 C 69 18 124/87 98 07/06/24 00:00 73 07/05/24 23:44 36.4 C L 77 18 131/89 100 O2 Del Method 07/06/24 07:32 Room Air 07/06/24 04:37 Room Air 07/06/24 00:00 07/05/24 23:44 Room Air Laboratory Results CBC 07/06/24 Range/Units 08:09 WBC 10.97 H (4.8-10.8) K/ul RBC 5.81 (4.70-6.10) M/uL Hgb 17.2 (14.0-18.0) g/dl Hct 50.3 (42.0-52.0) % Plt Count 318 (130-400) K/uL Comprehensive Metabolic Panel 07/06/24 Range/Units 08:09 Sodium 140 (136-145) mmol/L Potassium 4.1 (3.5-5.1) mmol/L Chloride 107 (98-107) mmol/L Carbon Dioxide 26 (21-32) mmol/L BUN 15 (6-23) mg/dl Creatinine 0.82 (0.6-1.4) mg/dl Glucose 142 H (70-99(Fasting)) mg/dl Calcium 9.5 (8.6-10.3) mg/dl Intake and Output 07/05/24 07/06/24 07/06/24 22:59 06:59 14:59 Intake Total 300 / 300 Balance 300 / 300 Intake: Oral 300 / 300 Other: # Unmeasured Voids 2 Weight 118.9 kg Weight Measurement Method Built in [facility] Diagnostic Findings EKG performed 07/06/24 and interpreted independently: SR at 64 bpm, evolution of inferior CO. ST segment elevation has resolved. Inferior T wave inversion noted. (1) STEMI (ST elevation myocardial infarction) Involved coronary artery: right coronary artery Qualified Code(s): I21.11 - ST elevation (STEMI) myocardial infarction involving right coronary artery (3) Hyperlipidemia Hyperlipidemia type: mixed hyperlipidemia Qualified Code(s): E78.2 - Mixed hyperlipidemia
--- NOTE | 2024-07-06 12:39 | Hospitalist Progress Note ---
Date of Service July 06, 2024 Assessment & Plan (1) STEMI (ST elevation myocardial infarction): (2) Hyperlipidemia: (3) Schizoaffective disorder, bipolar type: Plan 33 year old male with PMH of hyperlipidemia and bipolar disorder who presented to the ED today with chest pain and was found to have a STEMI. ST segment elevation myocardial infarction --S/P Successful PCI with implantation of 2 overlapped drug-eluting stents to the proximal RCA --ECHO: Mild concentric LVH. Moderate sized apical, inferior and posterior wall motion abnormality with hypokinesis of the segments. Left ventricle systolic function is mildly reduced. EF 40 to 45%. LV diastolic function is normal. No significant valvular heart disease --Lipid Panel: TC: 173, LDL:116, HDL 32 -- HbA1c 5.5 Continue aspirin 81 mg daily, Lipitor 40 mg daily, Brilinta 90 mg twice a day Continue metoprolol 25 mg twice a day Also started on lisinopril 2.5 mg daily Appreciate cardiology input Advised to follow-up with cardiology on discharge Schizoaffective disorder, bipolar type Continue Depakote Obesity BMI 35.4 DVT Px: SCDs for now Code Status Full Code Admission and Anticipated Discharge Date Admission Date: July 04, 2024 Subjective Patient is seen and examined at bedside No recurrence of chest pain Feels well today Discussed with cardiology today Denies any dyspnea, nausea, vomiting, abdominal pain, dizziness Plan to be discharged home today Review of Systems Review of Systems: All systems reviewed & are unremarkable except as noted in Subjective Physical Exam Physical Exam: Physical Exam: Vitals signs as noted above General Appearance:Obese, no apparent distress Head: normocephalic, Atraumatic Eyes: normal inspection, EOMI Neck: supple, Trachea midline Respiratory/Chest: Normal breath sounds, CTA, No accessory muscle use Cardiovascular: S1, S2, No murmur Abdomen/GI:Soft, Non tender, Bowel sounds present Extremities/Musculoskeletal:normal inspection, no edema Neurologic/Psych:AAOX3, grossly no focal neurological deficits Skin: normal color, warm Results & Data Results & Data Vital Signs (Past 12 Hours) Vital Signs Temp Pulse Pulse Resp BP Pulse Ox O2 Del Method 07/06/24 11:14 36.6 C 72 18 135/85 99 Room Air 07/06/24 08:00 60 07/06/24 07:32 36.6 C 86 18 133/87 97 Room Air 07/06/24 04:37 36.6 C 69 18 124/87 98 Room Air Laboratory Results Short CBC 07/06/24 Range/Units 08:09 WBC 10.97 H (4.8-10.8) K/ul Hgb 17.2 (14.0-18.0) g/dl Hct 50.3 (42.0-52.0) % Plt Count 318 (130-400) K/uL BMP 07/06/24 08:09 Sodium 140 Potassium 4.1 Chloride 107 Carbon Dioxide 26 BUN 15 Creatinine 0.82 Glucose 142 H Calcium 9.5 (1) STEMI (ST elevation myocardial infarction) Involved coronary artery: right coronary artery Qualified Code(s): I21.11 - ST elevation (STEMI) myocardial infarction involving right coronary artery (2) Hyperlipidemia Hyperlipidemia type: mixed hyperlipidemia Qualified Code(s): E78.2 - Mixed hyperlipidemia
--- NOTE | 2024-07-06 12:44 | Discharge Summary ---
Date of Service July 06, 2024 Admission HPI Per Admitting Provider 33 year old male with PMH of hyperlipidemia and bipolar disorder who presented to the ED today with chest pain. He reports that he was taking out the trash at work when he developed severe left sided chest pain with associated anxiety and diaphoresis. He came to the ED two hours later where his EKG revealed STEMI in the inferior leads. A heart alert was activated in the ED. Patient seen in the ICU after cardiac cath. He reports his chest pain is much improved. Denies fevers, chills, chest pain, SOB, abdominal pain, N/V, numbness/tingling. Admission Exam Per Admitting Provider General/Psych: WD/WN, sitting up in bed, NAD, conversing easily, euthymic affect Head: normocephalic, atraumatic Eyes: normal inspection, PERRL, conjunctivae pink, anicteric sclerae ENT: external ear and nose normal, oropharynx normal Neck: normal visual inspection, trachea midline, no thyromegaly Respiratory: normal respiratory effort, lungs clear to auscultation, no wheeze/rales/rhonchi, no accessory muscle use Cardiovascular: regular rate and rhythm, no murmur/rub/gallop, no JVD Extremities: no cyanosis or clubbing, normal peripheral pulses, no BLE edema, radial band in place on right wrist Abdomen/GI: normal bowel sounds, soft, nontender, no hepatosplenomegaly Neurologic/MSK: A+Ox3, motor strength 5/5, moves all extremities Skin: no rashes, normal color, warm and dry Principal Diagnosis ST segment elevation myocardial infarction Discharge Data Allergies Allergy/AdvReac Type Severity Reaction Status Date / Time oxcarbazepine Allergy Severe UNKNOWN Verified 07/04/24 15:58 Consultations 07/04/24 16:56 Consult Cardiac Rehabilitation Routine 07/04/24 16:59 Consult Electrical Prospecting Engineer Routine 07/04/24 17:53 Consult Cardiology Routine 07/05/24 08:00 Consult Cardiology Routine Procedures Performed Operation Date: 07/04/24 16:00 Actual Procedures s Cineradiography w/Routine Exam - Carlos Jeffries MD, PhD p Aspiration/PCI w/AURELIA for Stemi - Carlos Jeffries MD, PhD Ordered Studies Laboratory Results WBC 10.97 K/ul (4.8-10.8) H 07/06/24 08:09 RBC 5.81 M/uL (4.70-6.10) 07/06/24 08:09 Hgb 17.2 g/dl (14.0-18.0) 07/06/24 08:09 Hct 50.3 % (42.0-52.0) 07/06/24 08:09 MCV 86.6 fL (80.0-100.0) 07/06/24 08:09 MCH 29.6 pg (25.0-34.0) 07/06/24 08:09 MCHC 34.2 g/dL (32.0-36.0) 07/06/24 08:09 RDW Std Deviation 40.6 fL (36.4-46.3) 07/06/24 08:09 RDW Coeff of Love 12.9 % (11.5-14.5) 07/06/24 08:09 Plt Count 318 K/uL (130-400) 07/06/24 08:09 MPV 9.2 fL (9.4-12.4) L 07/06/24 08:09 Immature Gran % (Auto) 0.7 % 07/04/24 15:58 Neut % (Auto) 70.6 % 07/04/24 15:58 Lymph % (Auto) 21.3 % 07/04/24 15:58 Castro % (Auto) 6.0 % 07/04/24 15:58 Eos % (Auto) 1.1 % 07/04/24 15:58 Baso % (Auto) 0.3 % 07/04/24 15:58 Neut # (Auto) 9.61 K/uL (1.40-6.50) H 07/04/24 15:58 Lymph # (Auto) 2.90 K/uL (1.20-3.40) 07/04/24 15:58 Castro # (Auto) 0.82 K/uL (0.11-0.59) H 07/04/24 15:58 Eos # (Auto) 0.15 K/uL (0.00-0.50) 07/04/24 15:58 Baso # (Auto) 0.04 K/uL (0.00-0.20) 07/04/24 15:58 Immature Gran # (Auto) 0.09 K/uL (0.01-0.20) 07/04/24 15:58 PT 10.1 Seconds (9.0-12.0) 07/04/24 15:58 INR 0.9 (0.9-1.1) 07/04/24 15:58 APTT 25 Seconds (21-31) 07/04/24 15:58 PTT Ratio 0.9 07/04/24 15:58 Activ Coag Time Kaolin 170 SECONDS (94-140) H 07/04/24 16:47 Sodium 140 mmol/L (136-145) 07/06/24 08:09 Potassium 4.1 mmol/L (3.5-5.1) 07/06/24 08:09 Chloride 107 mmol/L (98-107) 07/06/24 08:09 Carbon Dioxide 26 mmol/L (21-32) 07/06/24 08:09 Anion Gap 7 (3-11) 07/06/24 08:09 BUN 15 mg/dl (6-23) 07/06/24 08:09 Creatinine 0.82 mg/dl (0.6-1.4) 07/06/24 08:09 Est Cr Clr Drug Dosing 176.3 ml/min 07/06/24 08:09 eGFR 120.44 07/06/24 08:09 BUN/Creatinine Ratio 18.3 (10-20) 07/06/24 08:09 Glucose 142 mg/dl (70-99(Fasting)) H 07/06/24 08:09 POC Glucose 90 mg/dl (70-99) 07/05/24 20:04 Estimat Average Glucose 111 mg/dl 07/04/24 15:58 Hemoglobin A1c 5.5 % (4.5-5.6) 07/04/24 15:58 Calcium 9.5 mg/dl (8.6-10.3) 07/06/24 08:09 Magnesium 1.9 mg/dl (1.7-2.4) 07/06/24 08:09 Total Bilirubin 0.6 mg/dl (0.2-1.0) 07/04/24 15:58 AST 52 U/L (13-39) H 07/04/24 15:58 ALT 72 U/L (7-52) H 07/04/24 15:58 Alkaline Phosphatase 83 U/L (34-104) 07/04/24 15:58 Troponin I High Sens 32390.8 pg/ml (0-20) H* 07/05/24 04:28 Total Protein 7.9 gm/dl (6.0-8.3) 07/04/24 15:58 Albumin 4.6 gm/dl (3.4-5.0) 07/04/24 15:58 Globulin 3.3 gm/dl (2.5-4.0) 07/04/24 15:58 Albumin/Globulin Ratio 1.4 (0.9-2) 07/04/24 15:58 Triglycerides 123 mg/dl (0-150) 07/05/24 04:28 Cholesterol 173 mg/dl (0-200) 07/05/24 04:28 LDL Cholesterol, Calc 116 mg/dl 07/05/24 04:28 VLDL Cholesterol, Calc 25 mg/dl (0-30) 07/05/24 04:28 HDL Cholesterol 32 mg/dl 07/05/24 04:28 Cholesterol/HDL Ratio 5.4 (0-5) H 07/05/24 04:28 Nasal Screen MRSA (PCR) Negative (Negative) 07/04/24 Unknown Urine Opiates Screen Neg (Neg) 07/05/24 01:19 Ur Methadone, Qual Neg (Neg) 07/05/24 01:19 Urine Fentanyl Screen Pos (Neg) H 07/05/24 01:19 Urine Barbiturates Neg (Neg) 07/05/24 01:19 Ur Phencyclidine (PCP) Neg (Neg) 07/05/24 01:19 U Amphetamin/Meth Scrn Neg (Neg) 07/05/24 01:19 MDMA (Ecstasy) Screen Neg (Neg) 07/05/24 01:19 U Benzodiazepines Scrn Pos (Neg) H 07/05/24 01:19 Ur Cocaine Metabolite Neg (Neg) 07/05/24 01:19 U Marijuana (THC) Screen Pos (Neg) H 07/05/24 01:19 Impressions Chest X-Ray 07/04/24 15:46 Chest radiograph, one view History: Chest pain Comparison: 2022 Findings: Single AP view of the chest performed. No focal consolidation or pleural effusion. No pneumothorax. The cardiomediastinal silhouette is within normal limits. Normal pulmonary vascularity. No evidence for lymphadenopathy. No visualized bony or soft tissue abnormality. Impression: Normal chest radiograph Electronically signed by Reggie Juárezana 07-04-2024 4:20 PM Hospital Course (1) STEMI (ST elevation myocardial infarction): (2) Hyperlipidemia: (3) Schizoaffective disorder, bipolar type: Plan 33 year old male with PMH of hyperlipidemia and bipolar disorder who presented to the ED today with chest pain and was found to have a STEMI. ST segment elevation myocardial infarction --S/P Successful PCI with implantation of 2 overlapped drug-eluting stents to the proximal RCA --ECHO: Mild concentric LVH. Moderate sized apical, inferior and posterior wall motion abnormality with hypokinesis of the segments. Left ventricle systolic function is mildly reduced. EF 40 to 45%. LV diastolic function is normal. No significant valvular heart disease --Lipid Panel: TC: 173, LDL:116, HDL 32 -- HbA1c 5.5 Continue aspirin 81 mg daily, Lipitor 40 mg daily, Brilinta 90 mg twice a day Continue metoprolol 25 mg twice a day Also started on lisinopril 2.5 mg daily Appreciate cardiology input Advised to follow-up with cardiology on discharge Schizoaffective disorder, bipolar type Continue Depakote Obesity BMI 35.4 DVT Px: SCDs for now Code Status Full Code Total Time Total Time Spent Total Time Spent (In Minutes): 54 minutes Discharge Plan Discharge Items Patient Disposition: Home - Self-Care Reason For Visit: STEMI Discharge Diagnosis: ST segment elevation myocardial infarction Activity: Per Instructions section Exercise/Sports: Wait until after follow-up appointment Non-emergency contact: Primary Care Provider and Macaroni Press Operator Call non-emergency contact if: you have any medication questions, your symptoms worsen, your pain is not controlled, you have a fever, your wound has increased redness and your wound has increased drainage Follow-up/Referrals: Demetrius Hobbs MD [Primary Care Provider] - (Date & Time 07/12/2024 11:20 AM Provider: Demetrius Hobbs MD [facility], [facility] ) Diet: Heart Healthy Add Attending Provider Instructions: ACTIVITY RECOMMENDATIONS: It is common to feel weak and fatigue for a few days. * Do not drive or operate any motorized equipment for the next three days. * Limit stair usage (2 or 3 trips a day only) for the next three days. * Do not lift anything heavier than 10 pounds for the next three days. * Do not engage in vigorous exercise or any sports for the next five days. * You may shower the day after your procedure, but do not immerse the area for three days. Cleanse the site gently with soap and water. SPECIAL CARE INSTRUCTIONS: * You may replace the pressure dressing or band-aid the morning after the procedure. * After your procedure, it is normal to have a small bruise or small lump at the site. Examine your site daily for any change in the bruise or lump, redness, swelling, drainage or numbness. Notify your doctor if any change. BLEEDING: * If there is a small amount of bleeding at the site, lie down and apply firm pressure with a clean cloth for ten minutes. When the bleeding stops, lie quietly keeping the procedure limb straight for six hours. Notify your doctor as soon as possible. * If the bleeding does not stop after ten minutes or if there is a large amount of bleeding or spurting, call 911 immediately. Continue to lie down and hold firm pressure until help arrives. SKIN IRRITATION: * You may experience some redness and/or swelling in the area where radiation was administered. If any skin irritation occurs, please contact your family physician. FOLLOW UP VISIT: Keep any scheduled doctor appointments. Addtl Nuclear Equipment Operator Provider Instructions: Follow-up with your primary care physician on 07/12/2024 11:20 AM Follow-up with your air compressor operator as advised. Cardiology office will call you with appointment. Seek immediate medical attention if your symptoms reoccur or worsen Please review medication list provided on discharge for any medication changes as instructed. Please call if you have any questions or problems. You can reach a [facility] hospitalist on duty at [facility] 24 hours a day by calling [phone] Home Care: * Take your medications exactly as directed. Don't skip doses. * Remember that recovery after a heart attack takes time. Plan to rest for at lease 4-8 weeks while you recover. Then return to normal activity when your doctor says it's okay. * Ask your doctor about joining a heart rehabilitation program. * Tell your doctor if you are feeling depressed. Feelings of sadness are common after a heart attack, but it is important that you speak to someone if you are feeling overwhelmed by these feelings. * If you are having chest pain, call 911 for an ambulance. Do NOT drive yourself to the hospital. * Ask your family members to learn CPR. * Learn to take your own blood pressure and pulse. Keep a record of your results. Ask your doctor when you should seek emergency medical attention. He or she will tell you which blood pressure reading is dangerous. Lifestyle Changes: * Maintain a healthy weight. Get help to lose any extra pounds. * Cut back on salt. * Limit canned, dried, packaged, and fast foods. * Don't add salt to your food. * Season foods with herbs instead of salt when you cook. * Break the smoking habit. Enroll in a stop-smoking program to improve your chances of success. * Limit fatty foods. * Ask your doctor about having your lipid levels checked regularly. * Build up your activity according to your doctor's recommendation. * Ask your doctor when it's okay to resume sexual activity. * Tell your doctor about any erectile dysfunction (ED) medication you are taking. Some ED medications are not safe if you take certain heart medications. * Try to manage stress. Follow Up: It is important for you to keep your follow up appointments with your medical provider. Pending Studies at Discharge: No Stand-Alone Forms: My [facility], Smoking Cessation Medications and DC Order Prescriptions: New atorvastatin 40 mg Tablet 40 mg PO QAM Qty: 90 3RF aspirin 81 mg Tablet,Delayed Release (Dr/Ec) 81 mg PO QAM Qty: 90 3RF metoprolol succinate 25 mg Tablet Extended Release 24 Hr 25 mg PO QAM Qty: 90 3RF lisinopril 2.5 mg Tablet 2.5 mg PO QAM Qty: 90 3RF Brilinta 90 mg Tablet 90 mg PO BID Qty: 180 3RF Continued divalproex 500 mg tablet extended release 24 hr 500 mg PO HS Discharge Orders: Discharge Order (Routine); Ordered 07/06/24 Ordered By: Braydon Wolff Admission Data Admit Date/Time: 07/04/24 16:59 Attending Provider: Braydon Wolff Admit Provider: Simón Eric Primary Care Provider: Demetrius Hobbs Other Providers: Giancarlo Workman; Carlos Jeffries; Carlos Vargas
--- NOTE | 2024-07-06 14:23 | Electrocardiogram Report ---
Test Reason : Blood Pressure : */* mmHG Vent. Rate : 64 BPM Atrial Rate : 64 BPM P-R Int : 168 ms QRS Dur : 92 ms QT Int : 426 ms P-R-T Axes : 55 -10 -42 degrees QTcB Int : 439 ms Normal sinus rhythm Inferior infarct (cited on or before 04-Jul-2024) Abnormal ECG When compared with ECG of 05-Jul-2024 06:03, T wave inversion more evident in Inferior leads Confirmed by Bridger Milner ([id number]) on 07/06/2024 2:23:33 PM Referred By: REFERRED SELF Confirmed By: Bridger Milner
[2024-07-10 10:12] LABS: 7-Aminoclonaz, Confirm NEGATIVE ng/mL (<25); Fentanyl, Urine NEGATIVE ng/mL (<0.5); Hydro-Alp Ur, GC/MS NEGATIVE ng/mL (<25); Hydroxyethylflurazepam, Conf NEGATIVE ng/mL (<50); Hydroxymidazolam Ur, GC/MS 435 ng/mL (<50); Hydroxytriazolam NEGATIVE ng/mL (<50); Lorazepam, Ur GC/MS NEGATIVE ng/mL (<50); Marijuana Quant, GCMS Urine 2424 ng/mL (<5); Nordiazepam, Confirm NEGATIVE ng/mL (<50); Norfentanyl, Urine 2.6 ng/mL (<0.5); Oxazepam Ur, GC/MS NEGATIVE ng/mL (<50); Temazepam, Confirm NEGATIVE ng/mL (<50); medMATCH Fentanyl, Urine DNR; medMATCH Norfentanyl, Urine DNR
== END 2024-07-06 13:14 | disposition home or self-care (01) | DRG 322 ==
LOC: ED 15:41 → CC 16:07 → 1E 16:07 → SUATTDRO 17:22 → 2S 07-05 18:53